=== PATIENT | female | born 1985 | race Caucasian/White ===

== ENCOUNTER 2021-06-19 18:33 | Emergency (ER) | payer MEDICARE, BC ==
[~2021-06-19] VITALS: Ht 160 cm; Wt 99.2 kg
[~2021-06-19 18:33] MED LIST: AMOX500C2 PO; CLD600T; CYCL10TA9 PO; HYDR-3583 PO; IRON; LA/L175C; LORA10TA2; METH4TAB PO; MUCINEX; NAPR-243 PO; NF-ESOM40C; OMEP20CA6; ONDA8TAB9 PO; PRM25T PO; RABE20TA PO; SULF1TAB38 PO; TLT2T; TRAM50TA2 PO; VIT1CAPS9
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
[2021-06-19] MEDS ORDERED: IOHEXOL 350 MG/ML 150 ML (OMNIPAQUE 350) VIAL IV ONE (19:00)
[2021-06-19] MEDS ORDERED: HOLD METFORMIN - RECEIVED CONTRAST 20 ML VIAL IV SCH (19:00)
[2021-06-19] MEDS ORDERED: NS 100 ML (IVPB) BAG IV ONE (19:00)
[2021-06-19 19:14] LABS: BASOPHILS # (AUTO) 0.1 10^3/uL (0.0-0.1); BASOPHILS % (AUTO) 1 % (0-10); EOSINOPHILS # (AUTO) 0.1 10^3/uL (0.0-0.3); EOSINOPHILS % (AUTO) 1 % (0-10); HEMATOCRIT 39 % (35-52); HEMOGLOBIN 13.4 g/dL (11.5-16.0); LYMPHOCYTES # (AUTO) 3.9 10^3/uL (1.0-4.0); LYMPHOCYTES % (AUTO) 28 % (12-44); MEAN CORPUSCULAR HEMOGLOBIN 26 pg (25-34); MEAN CORPUSCULAR HGB CONC 34 g/dL (32-36); MEAN CORPUSCULAR VOLUME 77 fL (80-99); MEAN PLATELET VOLUME 10.2 fL (9.0-12.2); MONOCYTES % (AUTO) 7 % (0-12); NEUTROPHILS # (AUTO) 8.8 10^3/uL (1.8-7.8); NEUTROPHILS % (AUTO) 63 % (42-75); PLATELET COUNT 231 10^3/uL (130-400); WHITE BLOOD COUNT 13.9 10^3/uL (4.3-11.0)
[2021-06-19 19:15] LABS: BILIRUBIN,URINE NEGATIVE (NEGATIVE); CLARITY,URINE CLOUDY; COLOR,URINE YELLOW; GLUCOSE, URINE (UA) 3+ (NEGATIVE); KETONES,URINE 1+ (NEGATIVE); LEUKOCYTE ESTERASE ,URINE TRACE (NEGATIVE); NITRITE,URINE NEGATIVE (NEGATIVE); PH,URINE 5.5 (5-9); PROTEIN,URINE NEGATIVE (NEGATIVE)
[2021-06-19 19:46] LABS: BACTERIA,URINE MODERATE /HPF
[2021-06-19 19:48] LABS: YEAST,URINE MODERATE /HPF
[2021-06-19 19:49] LABS: URINE OTHER YEAST ON SQ.EP.CELLS /HPF
[2021-06-19 20:06] LABS: ALKALINE PHOSPHATASE 79 U/L (40-136); BILIRUBIN,TOTAL 0.3 MG/DL (0.1-1.0); BUN/CREATININE RATIO 19; CALCIUM 10.2 MG/DL (8.5-10.1); CARBON DIOXIDE 19 MMOL/L (21-32); CHLORIDE 96 MMOL/L (98-107); CREATININE SERUM 1.08 MG/DL (0.60-1.30); GFR ESTIMATED 68; GLUCOSE 240 MG/DL (70-105); POTASSIUM 3.3 MMOL/L (3.6-5.0); SODIUM 135 MMOL/L (135-145)
[2021-06-19 20:07] LABS: ALANINE AMINOTRANSFERASE 17 U/L (0-55); ALBUMIN 4.7 GM/DL (3.2-4.5); TOTAL PROTEIN 7.9 GM/DL (6.4-8.2)
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
[2021-06-19] MEDS ORDERED: NITR100C PO (21:13)
[2021-06-19 21:19] VITALS: BP 109/94
== END 2021-06-19 21:19 | disposition home or self-care (01) ==
LOC: EDUNIT# 18:33 → ER FS 18:34
DX: S09.90XA Unspecified injury of head, initial encounter (principal); B37.49 Other urogenital candidiasis; G89.29 Other chronic pain; M54.9 Dorsalgia, unspecified; Z79.891 Long term (current) use of opiate analgesic; Y04.2XXA Assault by strike against or bumped into by another person, initial encounter
CPT/HCPCS: 36415; 70450; 70486; 74177; 80053; 81000; 84703; 85025; 87088

== ENCOUNTER 2021-06-22 22:48 | Emergency (ER) | payer MEDICARE, BC ==
[~2021-06-22] VITALS: Ht 160 cm; Wt 122.0 kg
[~2021-06-22 22:48] MED LIST changes: +NITR100C PO
[2021-06-23 00:47] LABS: BILIRUBIN,URINE NEGATIVE (NEGATIVE); CLARITY,URINE CLEAR; COLOR,URINE YELLOW; GLUCOSE, URINE (UA) 3+ (NEGATIVE); KETONES,URINE TRACE (NEGATIVE); LEUKOCYTE ESTERASE ,URINE NEGATIVE (NEGATIVE); NITRITE,URINE NEGATIVE (NEGATIVE); PROTEIN,URINE NEGATIVE (NEGATIVE)
[2021-06-23 01:14] LABS: AMPHETAMINE SCREEN, URINE NEGATIVE (NEGATIVE); BARBITURATE SCREEN URINE NEGATIVE (NEGATIVE); BENZODIAZEPINES SCREEN URINE NEGATIVE (NEGATIVE); CANNABINOID SCREEN, URINE NEGATIVE (NEGATIVE); COCAINE SCREEN URINE NEGATIVE (NEGATIVE); METHADONE STAT NEGATIVE (NEGATIVE); METHAMPHETAMINE SCREEN URINE S NEGATIVE (NEGATIVE); OPIATE SCREEN URINE NEGATIVE (NEGATIVE); OXYCODONE STAT NEGATIVE (NEGATIVE); PROPOXYPHENE STAT NEGATIVE (NEGATIVE); TRICYCLIC ANTIDEPRESSANTS SCRE POSITIVE (NEGATIVE)
[2021-06-23 01:15] LABS: BACTERIA,URINE NEGATIVE /HPF; SQUAMOUS EPITHELIAL CELL,UR 0-2 /HPF
[2021-06-23 02:56] LABS: BASOPHILS % (AUTO) 0 % (0-10); EOSINOPHILS # (AUTO) 0.2 10^3/uL (0.0-0.3); EOSINOPHILS % (AUTO) 3 % (0-10); HEMATOCRIT 35 % (35-52); HEMOGLOBIN 11.5 g/dL (11.5-16.0); LYMPHOCYTES # (AUTO) 2.4 10^3/uL (1.0-4.0); LYMPHOCYTES % (AUTO) 41 % (12-44); MEAN CORPUSCULAR HEMOGLOBIN 26 pg (25-34); MEAN CORPUSCULAR HGB CONC 33 g/dL (32-36); MEAN CORPUSCULAR VOLUME 80 fL (80-99); MEAN PLATELET VOLUME 10.1 fL (9.0-12.2); MONOCYTES # (AUTO) 0.7 10^3/uL (0.0-1.0); MONOCYTES % (AUTO) 12 % (0-12); NEUTROPHILS # (AUTO) 2.6 10^3/uL (1.8-7.8); NEUTROPHILS % (AUTO) 44 % (42-75); PLATELET COUNT 186 10^3/uL (130-400)
[2021-06-23 03:07] LABS: INR 1.1 (0.8-1.4); PROTHROMBIN TIME PATIENT 14.3 SEC (12.2-14.7)
[2021-06-23 03:08] LABS: ALBUMIN 3.7 GM/DL (3.2-4.5); CHLORIDE 109 MMOL/L (98-107); POTASSIUM 3.3 MMOL/L (3.6-5.0); SODIUM 139 MMOL/L (135-145)
[2021-06-23 03:10] LABS: CALCIUM 8.4 MG/DL (8.5-10.1)
[2021-06-23 03:11] LABS: GLUCOSE 292 MG/DL (70-105); TOTAL PROTEIN 6.4 GM/DL (6.4-8.2)
[2021-06-23 03:12] LABS: CARBON DIOXIDE 19 MMOL/L (21-32)
[2021-06-23 03:13] LABS: BILIRUBIN,TOTAL 0.2 MG/DL (0.1-1.0)
[2021-06-23 03:14] LABS: ALKALINE PHOSPHATASE 82 U/L (40-136)
[2021-06-23 03:15] LABS: CREATININE SERUM 0.84 MG/DL (0.60-1.30); GFR ESTIMATED 92
[2021-06-23 03:16] LABS: BUN/CREATININE RATIO 20
[2021-06-23 03:18] LABS: ALANINE AMINOTRANSFERASE 16 U/L (0-55)
[2021-06-23 03:19] LABS: LIPASE 46 U/L (8-78)
[2021-06-23] MEDS ORDERED: ONDANSETRON 4 MG/2 ML (SDV) Z0FRAN IVP ONE (04:45)
[2021-06-23] MEDS ORDERED: ONDANSETRON 4 MG (ZOFRAN) ORAL DISSOLVE TAB SL ONE (05:30)
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
[2021-06-23] MEDS ORDERED: SUCR1TAB36 PO (05:41)
[2021-06-23] MEDS ORDERED: OMEP20TA7 PO (05:41)
[2021-06-23] MEDS ORDERED: FLUC150T PO (05:41)
[2021-06-23] MEDS ORDERED: ONDA4TAB11 SL (05:44)
[2021-06-23 05:52] VITALS: BP 162/112
== END 2021-06-23 05:53 | disposition home or self-care (01) ==
LOC: EDUNIT# 22:48 → ER 22:51
DX: S06.0X9A Concussion with loss of consciousness of unspecified duration, initial encounter (principal); K92.0 Hematemesis; B37.3 Candidiasis of vulva and vagina; R73.9 Hyperglycemia, unspecified; G89.29 Other chronic pain; M54.9 Dorsalgia, unspecified; F17.210 Nicotine dependence, cigarettes, uncomplicated; Z79.891 Long term (current) use of opiate analgesic; Z32.02 Encounter for pregnancy test, result negative; Y04.8XXA Assault by other bodily force, initial encounter
CPT/HCPCS: 80053; 80306; 81000; 83690; 84703; 85025; 85610; 85730; 86141; 99283; G0480; 36415; 80320

== ENCOUNTER 2021-07-23 05:37 | Outpatient (CLI) | payer MEDICARE, BC ==
[~2021-07-23] VITALS: Ht 160 cm; Wt 101.0 kg
[~2021-07-23 05:37] MED LIST changes: +FLUC150T PO; +OMEP20TA7 PO; +ONDA4TAB11 SL; +SUCR1TAB36 PO
[2021-07-23] MEDS ORDERED: ASCO100024 PO (12:14)
[2021-07-23] MEDS ORDERED: LISI20TA26 PO (12:14)
[2021-07-23] MEDS ORDERED: TRM50T PO (12:14)
[2021-07-23] MEDS ORDERED: TOLT2TAB19 PO (12:14)
[2021-07-23] MEDS ORDERED: DAPA10TA PO (12:14)
[2021-07-23] MEDS ORDERED: AMIT25TA9 PO (12:14)
[2021-07-23] MEDS ORDERED: MV-M1TAB20 PO (12:14)
[2021-07-23] MEDS ORDERED: METF-397 PO (12:14)
[2021-07-23] MEDS ORDERED: IBUP-1779 PO (12:14)
[2021-07-23] MEDS ORDERED: DULO60CA59 PO (12:14)
[2021-07-23] MEDS ORDERED: GLUC1CAP37 PO (12:14)
[2021-07-23] MEDS ORDERED: OMEP20TA7 PO (12:14)
[2021-07-23] MEDS ORDERED: ASPI-999 PO (12:14)
[2021-07-23] MEDS ORDERED: TOPI25TA10 PO (12:14)
== END 2021-07-23 12:23 | disposition home or self-care (01) ==
LOC: PREOP 05:37 → EDSTATUS 09:15 → PREOP 12:23
PROVIDERS: ATTEND Surgery
DX: Z01.818 Encounter for other preprocedural examination (principal)

== ENCOUNTER 2021-07-30 08:05 | Day surgery (SDC) | payer MEDICARE, MEDICAID ==
[~2021-07-30] VITALS: Ht 160 cm; Wt 101.0 kg
[~2021-07-30 08:05] MED LIST changes: +AMIT25TA9 PO; +ASCO100024 PO; +ASPI-999 PO; +DAPA10TA PO; +DULO60CA59 PO; +GLUC1CAP37 PO; +IBUP-1779 PO; +LISI20TA26 PO; +METF-397 PO; +MV-M1TAB20 PO; +TOLT2TAB19 PO; +TOPI25TA10 PO; +TRM50T PO
[2021-07-30] MEDS ORDERED: LACTATED RINGERS 1,000 ML IV ONE (08:10)
[2021-07-30] MEDS ORDERED: LACTATED RINGERS 1,000 ML IV STA (08:27)
[2021-07-30 08:30] VITALS: BP 152/101
[2021-07-30] MEDS ORDERED: HURRICAINE EXT TUBE (BENZOCAINE) XX PRN (08:30)
--- NOTE | 2021-07-30 08:52 | Progress Note-Pre Operative ---
Pre-Operative Progress Note H&P Reviewed The H&P was reviewed, patient examined and no changes noted. Time Seen by Provider: 08:50 Date H&P Reviewed: Jul 30, 2021 Time H&P Reviewed: 08:50 Pre-Operative Diagnosis: Rectal Bleed, Chronic Gastritis MARIE ESTRELLA DO Jul 30, 2021 08:52
[2021-07-30] MEDS ORDERED: PROPOFOL INJECTION 0 ML IV ONE (09:23)
[2021-07-30] MEDS ORDERED: MIDAZOLAM 5 MG/5 ML (VERSED) VIAL ONE (09:23)
[2021-07-30] MEDS ORDERED: PROPOFOL INJECTION 50 ML IV ONE (09:40)
[2021-07-30 09:57] VITALS: BP 116/63
--- NOTE | 2021-07-30 10:00 | Progress Note-Post Operative ---
Post-Operative Progess Note Surgeon (s)/Hooker Inspector (s) Surgeon MARIE ESTRELLA DO Hooker Inspector: Bruna Hansen, MSIII Pre-Operative Diagnosis Rectal Bleed, Chronic Gastritis Post-Operative Diagnosis Gastritis Hiatal hernia Esophagitis polyp int hemorrhoids Procedure & Operative Findings Date of Procedure 07/30/21 Procedure Performed/Findings EGD with bx Colon with cold bx PROCEDURE NOTE: After informed consent was obtained, the patient was brought to the endoscopy suite, placed in bed in left lateral decubitus position. She was administered IV sedation by the MOVING CONSULTANT who then monitored vitals the entire time, heart rate, blood pressure and pulse ox and the scope was inserted down the mouth through the esophagus into the stomach. On the way down, noted some mild esophagitis, took a picture, pushed into the stomach, pushed past the antrum into the duodenum. Duodenum looked good. Pulled back and did a biopsy of antrum, then retroflexed the scope, saw 1-2cm hiatal hernia, took a picture of this and then pulled the scope into the GE junction, took another picture of the hiatal hernia and then did a biopsy of the GE junction. Pushed the scope back into the stomach, suctioned all the air out of the stomach. At this point pulled the scope up the esophagus and out the mouth. Switched camera, switched gloves, went down below, started the colonoscopy. Pushed all the way into about 110 cm to get all the way to cecum, took a picture of the appendiceal orifice, noted the ileocecal valve and then slowly withdrew the scope, insufflating the circumferential pinedo looking the cecum, up the ascending colon to the hepatic flexure, then down the transverse colon, splenic flexure, into the descending colon and down into the sigmoid. Saw a small flat polyp in the sigmoid and did a cold biopsy of it. Finally into the rectum, retroflexed in the rectal vault, saw some minimal internal hemorrhoids and took a picture of this. The patient tolerated the procedure and she recovered in the endoscopy suite. Anesthesia Type IV sedation by MOVING CONSULTANT Estimated Blood Loss Estimated blood loss (mL): scant Specimens/Packing Specimens Removed antral bx body of stomach bx GE jxn bx Sigmoid polyp bx MARIE ESTRELLA DO Jul 30, 2021 10:00
[2021-07-30 10:02] VITALS: BP 114/62
--- NOTE | 2021-07-30 10:02 | Endoscopy Discharge Instruct ---
Endo Procedure/Findings Findings 1.: Hiatal Hernia 2.: Gastritis 3.: Polyp 4.: Internal Hemorrhoids Discharge Instructions - Activity: You might feel a little sleepy until tomorrow. This is due to the medicine you received to relax you. Until tomorrow, you should: NOT drive a car, operate machinery or power tools. NOT drink any alcoholic beverages. NOT make any important decisions or sign importortant papers. Do not return to work until tomorrow, unless otherwise instructed. Resume previous activities tomorrow. Diet: Start by taking liquids. If you tolerate liquids, advance to solid food. 1.: Colonscopy in 5 years 2.: EGD in 3 years Notify Physician - If you experience excessive bleeding, unusual abdominal pain, fever, or chest pain, contact your doctor immediately. MARIE ESTRELLA DO Jul 30, 2021 10:02
[2021-07-30 10:05] VITALS: BP 127/71
[2021-07-30 10:40] VITALS: BP 109/59
--- NOTE | 2021-07-30 14:24 | Anesthesia-General Post-Op ---
MAC Patient Condition Mental Status/LOC: Same as Preop Cardiovascular: Satisfactory Nausea/Vomiting: Absent Respiratory: Satisfactory Pain: Controlled Complications: Absent Post Op Complications Complications None Follow Up Care/Instructions Patient Instructions None needed. Anesthesiology Discharge Order Discharge Order Patient is doing well, no complaints, stable vital signs, no apparent adverse anesthesia problems. No complications reported per nursing. MAUREEN VILLASENOR CRNA Jul 30, 2021 14:24
== END 2021-07-30 10:46 | disposition home or self-care (01) ==
LOC: ENDO 08:05
PROVIDERS: ATTEND Surgery
DX: K29.51 Unspecified chronic gastritis with bleeding (principal); K44.9 Diaphragmatic hernia without obstruction or gangrene; K21.01 Gastro-esophageal reflux disease with esophagitis, with bleeding; D12.5 Benign neoplasm of sigmoid colon; K64.8 Other hemorrhoids; E11.40 Type 2 diabetes mellitus with diabetic neuropathy, unspecified; F17.210 Nicotine dependence, cigarettes, uncomplicated; Z79.84 Long term (current) use of oral hypoglycemic drugs
CPT/HCPCS: 82947

== ENCOUNTER 2021-08-19 14:49 | Emergency (ER) | payer MEDICAID, MEDICARE ==
[~2021-08-19] VITALS: Ht 160 cm; Wt 90.0 kg
[2021-08-19 15:04] VITALS: BP 171/115
--- NOTE | 2021-08-19 15:25 | ED General ---
General Chief Complaint: General Problems/Pain Stated Complaint: FALL; RT FLANK PAIN Nursing Triage Note: Patient has presented to ER with cc of a fall on . She reports that she hit the right side of her head, she has lower right side back/flank pain, right side abd pain, her fingers and hands are sore, she reports that her skin feels warm to touch, and she reports that her skin is flushed today. She reports that she did get tramadol from [facility] on evening for the pain - she had called the offcie and she got a few tramadol. Today she is out of the tramadol. She has been taking ibuprofen daily for her pain but it is not getting better. Source of Information: Patient Exam Limitations: No Limitations History of Present Illness Date Seen by Provider: Aug 19, 2021 Time Seen by Provider: 15:21 Initial Comments Patient is a 36-year-old female who presents with bilateral flank pain and suprapubic pain, and flushing. Over fever chills, nausea vomiting or sweats. History of recurrent urinary tract infections. Timing/Duration: 12-24 Hours Severity: Mild Modifying Factors: improves with Other Associated Systoms: Other Allergies and Home Medications Allergies Uncoded Allergies: CONTROL (Allergy, Mild, HIGH BLOOD PRESSURE, 10/05/09) Patient Home Medication List Home Medication List Reviewed: Yes Amitriptyline HCl (Amitriptyline HCl) 25 Mg Tablet, 50 MG PO DAILY, (Reported) Entered as Reported by: DOMINIC HERNANDEZ on 07/23/211213 Ascorbic Acid (Vitamin C) 1,000 Mg Tablet, 1,000 MG PO DAILY, (Reported) Entered as Reported by: DOMINIC HERNANDEZ on 07/23/211213 Aspirin (Aspirin) 81 Mg Tab.chew, 81 MG PO DAILY, (Reported) Entered as Reported by: DOMINIC HERNANDEZ on 07/23/211213 Dapagliflozin Propanediol (Farxiga) 10 Mg Tablet, 10 MG PO DAILY, (Reported) Entered as Reported by: DOMINIC HERNANDEZ on 07/23/211213 Duloxetine HCl (Duloxetine HCl) 60 Mg Capsule.dr, 60 MG PO DAILY, (Reported) Entered as Reported by: DOMINIC HERNANDEZ on 07/23/211213 Glucosa Schmidt 2Kcl/Chondroitin Schmidt (Glucosamine & Chondroitin Cap) 1 Each Capsule, 2 EACH PO DAILY, (Reported) Entered as Reported by: DOMINIC HERNANDEZ on 07/23/21 1214 Ibuprofen (Ibuprofen) 400 Mg Tablet, 400 MG PO TID PRN for PAIN, (Reported) Entered as Reported by: DOMINIC HERNANDEZ on 07/23/21 121 Lisinopril (Lisinopril) 20 Mg Tablet, 20 MG PO DAILY, (Reported) Entered as Reported by: DOMINIC HERNANDEZ on 07/23/21 121 Metformin HCl (Metformin HCl) 500 Mg Tablet, 500 MG PO BID, (Reported) Entered as Reported by: DOMINIC HERNANDEZ on 07/23/21 121 Mv-Mn/Iron/FA/Herbal Cmplx#190 (Vitamin D3 Complete Caplet) 1 Each Tablet, 1 EACH PO DAILY, (Reported) Entered as Reported by: DOMINIC HERNANDEZ on 07/23/21 121 Omeprazole (Omeprazole) 20 Mg Tablet.dr, 20 MG PO BID, (Reported) Entered as Reported by: DOMINIC HERNANDEZ on 07/23/21 121 Sucralfate (Carafate) 1 Gm Tablet, 1 GM PO QID Prescribed by: BUSTER KEVIN on 06/23/21 0541 Tolterodine Tartrate (Tolterodine Tartrate) 2 Mg Tablet, 2 MG PO DAILY, (Reported) Entered as Reported by: DOMINIC HERNANDEZ on 07/23/21 121 Topiramate (Topiramate) 25 Mg Tablet, 25 MG PO DAILY, (Reported) Entered as Reported by: DOMINIC HERNANDEZ on 07/23/21 121 Tramadol HCl (Tramadol HCl) 50 Mg Tablet, 50 MG PO Q4H PRN for PAIN-MODERATE (5- 7), (Reported) Entered as Reported by: DOMINIC HERNANDEZ on 07/23/21 121 Tramadol Hcl (Tramadol Hcl) 50 Mg Tablet, 50 MG PO Q4H PRN for PAIN Prescribed by: JOSIE RITCHIE on 04/16/13 7055 Review of Systems Review of Systems Constitutional: see HPI EENTM: see HPI Respiratory: see HPI Cardiovascular: see HPI Gastrointestinal: see HPI Genitourinary: see HPI Musculoskeletal: see HPI Skin: see HPI Psychiatric/Neurological: See HPI Hematologic/Lymphatic: See HPI Immunological/Allergic: see HPI Past Dzehqbs-Nwlert-Tjsldn Hx Patient Social History Tobacco Use?: Yes Tobacco type used: Cigarettes Smoking Status: Current Everyday Smoker Use of E-Cig and/or Vaping dev: No Substance use?: No Alcohol Use?: No Immunizations Up To Date Tetanus Booster (TDap): Unknown First/Initial COVID19 Vaccinat: NO Second COVID19 Vaccination Papa: NO Third COVID19 Vaccination Date: NO Seasonal Allergies Seasonal Allergies: No Past Medical History Surgeries: Yes Bladder Surgery Respiratory: No Cardiac: Yes Hypertension Neurological: No Reproductive Disorders: No Female Reproductive Disorders: Denies Sexually Transmitted Disease: No HIV/AIDS: No Genitourinary: Yes (BLADDER SURGERY A CHILD, OVERACTIVE BLADDER) Gastrointestinal: Yes Gastroesophageal Reflux Musculoskeletal: Yes Fibromyalgia, Back Injury, Scoliosis, Chronic Back Pain Endocrine: Yes Diabetes, Non-Insulin dep HEENT: No Double Vision Cancer: No Psychosocial: Yes Anxiety, Depression Integumentary: No Blood Disorders: No Family Medical History Renal Disease Physical Exam Vital Signs Vital Signs - First Documented 08/19/21 15:04 Temp 36.1 Pulse 91 B/P (MAP) 171/115 (133) Pulse Ox 98 O2 Delivery Room Air Capillary Refill : Height, Weight, BMI Height: '" Weight: 220lbs. oz. 99.246195ai; 35.00 BMI Method:Stated General Appearance: No Apparent Distress, WD/WN Eyes: Bilateral Eye Normal Inspection, Bilateral Eye PERRL, Bilateral Eye EOMI HEENT: PERRL/EOMI, TMs Normal Gastrointestinal: Non Tender, Soft Back: No CVA Tenderness, No Vertebral Tenderness Neurologic/Psychiatric: Alert, Oriented x3, No Motor/Sensory Deficits Focused Exam Sepsis Stage: Ruled Out Progress/Results/Core Measures Suspected Sepsis SIRS Temperature: Pulse: 91 Respiratory Rate: Blood Pressure 171 /115 Mean: 133 Results/Orders Lab Results Laboratory Tests Test 08/19/21 15:20 Range/Units Urine Color YELLOW Urine Clarity SLIGHTLY CLOUDY Urine pH 6.0 5-9 Urine Specific [place] 1.020 1.016-1.022 Urine Protein NEGATIVE NEGATIVE Urine Glucose (UA) 3+ H NEGATIVE Urine Ketones 1+ H NEGATIVE Urine Nitrite NEGATIVE NEGATIVE Urine Bilirubin NEGATIVE NEGATIVE Urine Urobilinogen 0.2 < = 1.0 MG/DL Urine Leukocyte Esterase NEGATIVE NEGATIVE Urine RBC (Auto) TRACE-I H NEGATIVE Urine RBC 5-10 H /HPF Urine WBC 25-50 H /HPF Urine Squamous Epithelial Cells 25-50 H /HPF Urine Crystals NONE /LPF Urine Bacteria MODERATE H /HPF Urine Casts NONE /LPF Urine Mucus NEGATIVE /LPF Urine Yeast MODERATE H /HPF Urine Culture Indicated NO My Orders Orders - RAOUL CASAREZ DO Ua Culture If Indicated (08/19/21 15:16) Vital Signs/I&O 08/19/21 15:04 Temp 36.1 Pulse 91 B/P (MAP) 171/115 (133) Pulse Ox 98 O2 Delivery Room Air Capillary Refill : Blood Pressure Mean: 133 Departure Impression Primary Impression: Urinary tract infection Disposition: HOME, SELF-CARE Condition: Stable Departure-Patient Inst. Decision time for Depature: 15:53 Referrals: MINI STAPLES APRN (PCP) Primary Care Physician [facility] (Family) Primary Care Physician Patient Instructions: Urinary Tract Infections in Adults Add. Discharge Instructions: You were evaluated in the emergency department for urinary tract infection. Please increase fluids and take newly prescribed medications as directed and follow-up with your PCP for 5- 7 days. Return to the ED if new or worsening symptoms. All discharge instructions reviewed with patient and/or family. Voiced understanding. Scripts Sulfamethoxazole/Trimethoprim (Bactrim Ds Tablet) 1 Each Tablet 1 EACH PO BID, #10 TAB Prov: RAOUL CASAREZ DO 08/19/21 RAOUL CASAREZ DO Aug 19, 2021 15:25
[2021-08-19 15:33] LABS: BILIRUBIN,URINE NEGATIVE (NEGATIVE); COLOR,URINE YELLOW; GLUCOSE, URINE (UA) 3+ (NEGATIVE); KETONES,URINE 1+ (NEGATIVE); LEUKOCYTE ESTERASE ,URINE NEGATIVE (NEGATIVE); NITRITE,URINE NEGATIVE (NEGATIVE); PROTEIN,URINE NEGATIVE (NEGATIVE)
[2021-08-19 15:37] LABS: CLARITY,URINE SLIGHTLY CLOUDY
[2021-08-19 15:38] LABS: BACTERIA,URINE MODERATE /HPF; SQUAMOUS EPITHELIAL CELL,UR 25-50 /HPF; WBC,URINE 25-50 /HPF; YEAST,URINE MODERATE /HPF
[2021-08-19] MEDS ORDERED: SULF1TAB38 PO (15:54)
[2021-08-19] MEDS ORDERED: TRIM/SULFAMETH 160/800 (SEPTRA DS) TAB PO ONE (16:00)
[2021-08-20] MEDS ORDERED: SULF1TAB38 PO (08:49)
[2021-08-20] MEDS ORDERED: ACET-2267 PO (08:49)
[2021-08-20] MEDS ORDERED: PHEN-639 PO (08:49)
[2021-08-20] MEDS ORDERED: ONDA4TAB11 PO (08:49)
[2021-08-20] MEDS ORDERED: IBUP-1773 PO (08:49)
== END 2021-08-19 16:00 | disposition home or self-care (01) ==
LOC: EDUNIT# 14:49 → ER FS 14:51
DX: N39.0 Urinary tract infection, site not specified (principal); E11.9 Type 2 diabetes mellitus without complications; F17.210 Nicotine dependence, cigarettes, uncomplicated; Z79.84 Long term (current) use of oral hypoglycemic drugs
CPT/HCPCS: 81000; 99285

== ENCOUNTER 2021-08-20 07:28 | Emergency (ER) | payer MEDICARE, MEDICAID ==
[~2021-08-20] VITALS: Ht 160 cm; Wt 127.0 kg
--- NOTE | 2021-08-20 08:09 | ED General ---
General Chief Complaint: General Problems/Pain Stated Complaint: FALL - HIT HEAD Source of Information: Patient Exam Limitations: No Limitations History of Present Illness Date Seen by Provider: Aug 20, 2021 Time Seen by Provider: 07:31 Initial Comments 36yoF with PMH of fibromyalgia, DM2, HTN, anxiety, PTSD coming in due to numerous complaints. The patient had a fall on for which she presented to [facility]. There they gave her a couple days of tramadol. She continued to have pain and presented to the ER yesterday and was diagnosed with a UTI for which she was started on Bactrim. She says she continues to have pain in numerous areas all over her body. The main issue is she is having pain on the right side of her body and some subjective weakness which has been going on for many days. She also is endorsing some dysuria. Allergies and Home Medications Allergies Uncoded Allergies: CONTROL (Allergy, Mild, HIGH BLOOD PRESSURE, 10/05/09) Patient Home Medication List Home Medication List Reviewed: Yes Acetaminophen (Tylenol Extra Strength) 500 Mg Tablet, 1,000 MG PO Q6H Prescribed by: ANAI CANALES on 08/20/21 0849 Amitriptyline HCl (Amitriptyline HCl) 25 Mg Tablet, 50 MG PO DAILY, (Reported) Entered as Reported by: DOMINIC HERNANDEZ on 07/23/21 121 Ascorbic Acid (Vitamin C) 1,000 Mg Tablet, 1,000 MG PO DAILY, (Reported) Entered as Reported by: DOMINIC HERNANDEZ on 07/23/21 121 Aspirin (Aspirin) 81 Mg Tab.chew, 81 MG PO DAILY, (Reported) Entered as Reported by: DOMINIC HERNANDEZ on 07/23/21 1214 Dapagliflozin Propanediol (Farxiga) 10 Mg Tablet, 10 MG PO DAILY, (Reported) Entered as Reported by: DOMINIC HERNANDEZ on 07/23/21 121 Duloxetine HCl (Duloxetine HCl) 60 Mg Capsule.dr, 60 MG PO DAILY, (Reported) Entered as Reported by: DOMINIC HERNANDEZ on 07/23/21 121 Glucosa Schmidt 2Kcl/Chondroitin Schmidt (Glucosamine & Chondroitin Cap) 1 Each Capsule, 2 EACH PO DAILY, (Reported) Entered as Reported by: DOMINIC HERNANDEZ on 07/23/21 1214 Ibuprofen (Ibuprofen) 400 Mg Tablet, 400 MG PO TID PRN for PAIN, (Reported) Entered as Reported by: DOMINIC HERNANDEZ on 07/23/21 1214 Lisinopril (Lisinopril) 20 Mg Tablet, 20 MG PO DAILY, (Reported) Entered as Reported by: DOMINIC HERNANDEZ on 07/23/21 1214 Metformin HCl (Metformin HCl) 500 Mg Tablet, 500 MG PO BID, (Reported) Entered as Reported by: DOMINIC HERNANDEZ on 07/23/21 1214 Mv-Mn/Iron/FA/Herbal Cmplx#190 (Vitamin D3 Complete Caplet) 1 Each Tablet, 1 EACH PO DAILY, (Reported) Entered as Reported by: DOMINIC HERNANDEZ on 07/23/21 1214 Omeprazole (Omeprazole) 20 Mg Tablet.dr, 20 MG PO BID, (Reported) Entered as Reported by: DOMINIC HERNANDEZ on 07/23/21 1214 Ondansetron (Ondansetron Odt) 4 Mg Tab.rapdis, 4 MG PO Q6H PRN for NAUSEA/VOMITING-1ST LINE Prescribed by: ANAI CANALES on 08/20/21 0849 Phenazopyridine HCl (Pyridium) 100 Mg Tablet, 100 MG PO BID Prescribed by: ANAI CANALES on 08/20/21 0849 Sucralfate (Carafate) 1 Gm Tablet, 1 GM PO QID Prescribed by: BUSTER KEVIN on 06/23/21 0541 Sulfamethoxazole/Trimethoprim (Bactrim Ds Tablet) 1 Each Tablet, 1 EACH PO BID Prescribed by: RAOUL CASAREZ on 08/19/21 1554 Sulfamethoxazole/Trimethoprim (Bactrim Ds Tablet) 1 Each Tablet, 1 EACH PO BID Prescribed by: ANAI CANALES on 08/20/21 0849 Tolterodine Tartrate (Tolterodine Tartrate) 2 Mg Tablet, 2 MG PO DAILY, (Reporte d) Entered as Reported by: DOIMNIC HERNANDEZ on 07/23/21 1214 Topiramate (Topiramate) 25 Mg Tablet, 25 MG PO DAILY, (Reported) Entered as Reported by: DOMINIC HERNANDEZ on 07/23/21 1214 Tramadol HCl (Tramadol HCl) 50 Mg Tablet, 50 MG PO Q4H PRN for PAIN-MODERATE (5- 7), (Reported) Entered as Reported by: DOMINIC HERNANDEZ on 07/23/21 1214 Tramadol Hcl (Tramadol Hcl) 50 Mg Tablet, 50 MG PO Q4H PRN for PAIN Prescribed by: JOSIE RITCHIE on 04/16/13 7356 Review of Systems Review of Systems Constitutional: No chills EENTM: No blurred vision Respiratory: no symptoms reported Cardiovascular: no symptoms reported Gastrointestinal: no symptoms reported Genitourinary: no symptoms reported Musculoskeletal: joint pain Skin: no symptoms reported Psychiatric/Neurological: Anxiety Hematologic/Lymphatic: No Symptoms Reported Immunological/Allergic: no symptoms reported All Other Systems Reviewed Negative Unless Noted: Yes Past Aqyfbml-Kzbqrq-Kyssjh Hx Immunizations Up To Date Tetanus Booster (TDap): Unknown First/Initial COVID19 Vaccinat: NO Second COVID19 Vaccination Papa: NO Third COVID19 Vaccination Date: NO Seasonal Allergies Seasonal Allergies: No Past Medical History Surgeries: Yes Bladder Surgery Respiratory: No Cardiac: Yes Hypertension Neurological: No Reproductive Disorders: No Female Reproductive Disorders: Denies Sexually Transmitted Disease: No HIV/AIDS: No Genitourinary: Yes (BLADDER SURGERY A CHILD, OVERACTIVE BLADDER) Gastrointestinal: Yes Gastroesophageal Reflux Musculoskeletal: Yes Fibromyalgia, Back Injury, Scoliosis, Chronic Back Pain Endocrine: Yes Diabetes, Non-Insulin dep HEENT: No Double Vision Cancer: No Psychosocial: Yes Anxiety, Depression Integumentary: No Blood Disorders: No Family Medical History Renal Disease Physical Exam Vital Signs Vital Signs - First Documented 08/20/21 07:31 Temp 36.0 Pulse 84 Resp 18 B/P (MAP) 178/115 (136) O2 Delivery Room Air Capillary Refill : Height, Weight, BMI Height: '" Weight: 220lbs. oz. 99.286729mn; 35.00 BMI Method:Stated General Appearance: No Apparent Distress, WD/WN Eyes: Bilateral Eye Normal Inspection HEENT: PERRL/EOMI, Normal ENT Inspection, Pharynx Normal Neck: Full Range of Motion, Normal Inspection, Non Tender, Supple Respiratory: Chest Non Tender, Lungs Clear, Normal Breath Sounds, No Accessory Muscle Use, No Respiratory Distress Cardiovascular: Regular Rate, Rhythm, No Edema, Normal Peripheral Pulses Gastrointestinal: Normal Bowel Sounds, Non Tender, Soft; No Distended, No Guarding Back: Normal Inspection, No CVA Tenderness, No Vertebral Tenderness Extremity: Normal Capillary Refill, Normal Inspection, Normal Range of Motion, Non Tender, No Calf Tenderness Neurologic/Psychiatric: Alert, Oriented x3, No Motor/Sensory Deficits, Normal Mood/Affect, opener tender II-XII Norm as Tested; No Abnormal Gait; Other (normal finger to nose) Skin: Normal Color, Warm/Dry Lymphatic: No Adenopathy Progress/Results/Core Measures Suspected Sepsis SIRS Temperature: Pulse: Respiratory Rate: Blood Pressure / Mean: Results/Orders Lab Results Laboratory Tests Test 08/20/21 08:08 Range/Units Urine Color YELLOW Urine Clarity CLEAR Urine pH 6.5 5-9 Urine Specific [place] 1.010 L 1.016-1.022 Urine Protein NEGATIVE NEGATIVE Urine Glucose (UA) 3+ H NEGATIVE Urine Ketones 1+ H NEGATIVE Urine Nitrite NEGATIVE NEGATIVE Urine Bilirubin NEGATIVE NEGATIVE Urine Urobilinogen 0.2 < = 1.0 MG/DL Urine Leukocyte Esterase NEGATIVE NEGATIVE Urine RBC (Auto) NEGATIVE NEGATIVE Urine RBC NONE /HPF Urine WBC NONE /HPF Urine Crystals PRESENT H /LPF Urine Amorphous Sediment FEW MARY ALICE URATES H /LPF Urine Bacteria NEGATIVE /HPF Urine Casts NONE /LPF Urine Mucus NEGATIVE /LPF Urine Culture Indicated NO My Orders Orders - ANAI CANALES MD Ct Head Wo (08/20/21 08:09) Ua Culture If Indicated (08/20/21 08:09) Vital Signs/I&O 08/20/21 07:31 Temp 36.0 Pulse 84 Resp 18 B/P (MAP) 178/115 (136) O2 Delivery Room Air Capillary Refill : Progress Note : Progress Note 36-year-old female with above history coming in due to full body pain most notably on the right side and some dysuria. ABCs were intact and vitals were stable on presentation. Physical exam with tenderness to light touch on palpation almost anywhere on her body. I did a [id number] ultrasound because she was concerned she was not emptying her bladder. She had no residual urine after urinating. I was palpating her abdomen quite hard with ultrasound and she was not having pain with that. She says she is having some subjective weakness in her right extremity since the fall and hitting her head. There is no objective weakness on exam and she is found using all extremities including her arms without difficulty. When you ask her to then lift her arm when she knows she is being examined she will then let her arm go to the bed. Out of an abundance of caution we will do a CT of her head since she did hit her head. Also get a urinalysis repeated due to the dysuria. She was diagnosed with a UTI yesterday, but the patient is adamant that it was a different urine that was sampled. CT head on my interpretation with no bleeding or mass. Urinalysis today is improved from yesterday. Given her significant degree of dysuria I will start her on some Pyridium. We will also start her on an anti-inflammatory to help with her pain. She should follow-up with her regular doctor. She says she has an appointment already in 9 days. She was then discharged home in stable condition with strict return precautions Diagnostic Imaging Diagonstic Imaging: CT Plain Films/CT/US/NM/MRI: head Comments NAME: [facility] REC#: [id number] PT STATUS: REG ER : 1985 PHYSICIAN: ANAI CANALES MD ADMIT DATE: 08/20/21/ER Signed Date of Exam:08/20/21 CT HEAD WO PROCEDURE: CT head without contrast. TECHNIQUE: Multiple contiguous axial images were obtained through the brain without the use of intravenous contrast. Auto Exposure Controls were utilized during the CT exam to meet ALARA standards for radiation dose reduction. DATE: August 20, 2021. COMPARISON: CT head and maxillofacial area June 19, 2021. MRI brain August 31, 2010. INDICATION: 36-year-old female, right-sided weakness. Fall last . FINDINGS: There is no identified skull fracture. The ventricles and cerebral spinal fluid spaces are of normal size and configuration for the patient's age. There is no mass effect or midline shift. There is no acute intracranial hemorrhage. There is no abnormal extra-axial fluid collection. The visualized portions of the paranasal sinuses, mastoid air cells and middle ears are well aerated. IMPRESSION: 1. No identified acute intracranial abnormality. Dictated by: Dictated on workstation # [id number] Dict: 08/20/21 [id number] Trans: 08/20/21 0845 [facility] [id number] Interpreted by: YANDEL BAÑUELOS MD Electronically signed by: YANDEL BAÑUELOS MD 08/20/21 0845 Departure Impression Primary Impression: Whole body pain Additional Impression: Fall Qualified Codes: W19.XXXA - Unspecified fall, initial encounter Disposition: HOME, SELF-CARE Condition: Stable Departure-Patient Inst. Decision time for Depature: 09:00 Referrals: MINI STAPLES APRN (PCP) Primary Care Physician [facility] (Family) Primary Care Physician Patient Instructions: Fibromyalgia (DC), Urinary Tract Infection, Adult (DC) Add. Discharge Instructions: We sent prescription ibuprofen and Tylenol to your pharmacy. If you need more tramadol you need to follow-up with your regular doctor, as were not able to do continued refills from the emergency department. I also sent nausea medicine to your pharmacy. I resent the antibiotic to the [facility] as well in [place] so it can be cheaper for you. I also sent a medication called Pyridium which will typically help with urinary discomfort. It will change your urine orange which is normal. If things are not improving call [employer] back to have quicker follow-up. Scripts Ondansetron (Ondansetron Odt) 4 Mg Tab.rapdis 4 MG PO Q6H PRN for NAUSEA/VOMITING-1ST LINE for 5 Days, #20 TAB Prov: ANAI CANALES MD 08/20/21 Sulfamethoxazole/Trimethoprim (Bactrim Ds Tablet) 1 Each Tablet 1 EACH PO BID for 5 Days, #10 TAB Prov: ANAI CANALES MD 08/20/21 Phenazopyridine HCl (Pyridium) 100 Mg Tablet 100 MG PO BID for 3 Days, #6 TAB Prov: ANAI CANALES MD 08/20/21 Acetaminophen (Tylenol Extra Strength) 500 Mg Tablet 1000 MG PO Q6H for 7 Days, #56 TAB Prov: ANAI CANALES MD 08/20/21 Ibuprofen (Ibuprofen) 600 Mg Tablet 600 MG PO Q6H PRN for PAIN-MILD for 7 Days, #28 TAB Prov: ANAI CANALES MD 08/20/21 Work/School Note: Work Release Form Date Seen in the Emergency Department: Aug 20, 2021 Return to Work: Aug 21, 2021 Restrictions: No Restrictions ANAI CANALES MD Aug 20, 2021 08:08
[2021-08-20 08:16] LABS: BILIRUBIN,URINE NEGATIVE (NEGATIVE); CLARITY,URINE CLEAR; COLOR,URINE YELLOW; GLUCOSE, URINE (UA) 3+ (NEGATIVE); KETONES,URINE 1+ (NEGATIVE); LEUKOCYTE ESTERASE ,URINE NEGATIVE (NEGATIVE); NITRITE,URINE NEGATIVE (NEGATIVE); PH,URINE 6.5 (5-9); PROTEIN,URINE NEGATIVE (NEGATIVE)
[2021-08-20 08:39] LABS: BACTERIA,URINE NEGATIVE /HPF
[2021-08-20 08:40] LABS: AMORPHOUS SEDIMENT,UR FEW AMOR URATES /LPF
--- NOTE | 2021-08-20 08:46 | Diagnostic Imaging Report ---
PROCEDURE: CT head without contrast. TECHNIQUE: Multiple contiguous axial images were obtained through the brain without the use of intravenous contrast. Auto Exposure Controls were utilized during the CT exam to meet ALARA standards for radiation dose reduction. DATE: August 20, 2021. COMPARISON: CT head and maxillofacial area June 19, 2021. MRI brain August 31, 2010. INDICATION: 36-year-old female, right-sided weakness. Fall last . FINDINGS: There is no identified skull fracture. The ventricles and cerebral spinal fluid spaces are of normal size and configuration for the patient's age. There is no mass effect or midline shift. There is no acute intracranial hemorrhage. There is no abnormal extra-axial fluid collection. The visualized portions of the paranasal sinuses, mastoid air cells and middle ears are well aerated. IMPRESSION: 1. No identified acute intracranial abnormality. Dictated by: Dictated on workstation # [id number]
[2021-08-20] MEDS ORDERED: ONDA4TAB11 PO (08:49)
[2021-08-20] MEDS ORDERED: PHEN-639 PO (08:49)
[2021-08-20] MEDS ORDERED: IBUP-1773 PO (08:49)
[2021-08-20] MEDS ORDERED: ACET-2267 PO (08:49)
[2021-08-20] MEDS ORDERED: SULF1TAB38 PO (08:49)
[2021-08-20 08:59] VITALS: BP 155/79
== END 2021-08-20 09:00 | disposition home or self-care (01) ==
LOC: EDUNIT# 07:28 → ER 07:30
DX: R52 Pain, unspecified (principal); N39.0 Urinary tract infection, site not specified; E11.9 Type 2 diabetes mellitus without complications; Z79.84 Long term (current) use of oral hypoglycemic drugs
CPT/HCPCS: 70450; 81000

== ENCOUNTER → 2021-09-13 | Outpatient (CLI) | payer MEDICARE, MEDICAID ==
[~2021-09-13] MED LIST changes: +ACET-2267 PO; +IBUP-1773 PO; +OMEP20TA56 PO; -OMEP20TA7 PO; +ONDA4TAB11 PO; +PHEN-639 PO
--- NOTE | 2021-09-13 10:35 | Diagnostic Imaging Report ---
INDICATION: PAIN IN RIGHT SHOULDER frequent falls. COMPARISON: None. FINDINGS: 2 views of the right shoulder were obtained. There is no fracture, dislocation, or other acute bony abnormality identified. The soft tissues appear unremarkable. No radiopaque foreign body is identified. The visualized portions of the right lung are clear. IMPRESSION: No acute fractures or dislocations of the right shoulder. Dictated by: Dictated on workstation # [id number]
== END ==
LOC: RAD FS 10:09
PROVIDERS: ATTEND Nurse Practitioner Family
DX: M25.511 Pain in right shoulder (principal)
CPT/HCPCS: 73030

== ENCOUNTER 2021-09-27 05:38 | Outpatient (CLI) | payer MEDICARE, MEDICAID ==
[~2021-09-27] VITALS: Ht 160 cm; Wt 109.0 kg
== END 2021-10-02 08:41 | disposition home or self-care (01) ==
LOC: PREOP 05:38
PROVIDERS: ATTEND Obstetrics & Gynecology
DX: Z01.818 Encounter for other preprocedural examination (principal)

== ENCOUNTER → 2021-10-04 | Day surgery (SDC) | payer MEDICARE, MEDICAID ==
[~2021-10-04] VITALS: Ht 160 cm; Wt 109.0 kg
[2021-10-04] VITALS (10 sets, daily range): BP systolic 103–180; BP diastolic 65–115
[~2021-10-04] MED LIST changes: +BUPIVACAINE 0.5% 30 ML (SENSORCAINE) VIAL ONE; +D5 LR IV SOLUTION 1,000 ML IV SCH; +KETOROLAC 30 MG/ML VIAL IVP ONE; +KETOROLAC 30 MG/ML VIAL ONE; +LIDOCAINE PF 2% 5 ML (XYLOCAINE) VIAL ONE; +MIDAZOLAM 2 MG/2 ML (VERSED) VIAL ONE; +ONDANSETRON 4 MG/2 ML (SDV) Z0FRAN IVP PRN; +ONDANSETRON 4 MG/2 ML (SDV) Z0FRAN ONE; +SEVOFLURANE (ULTANE) 15 ML INHAL SOLN ONE; +fentaNYL INJ 100 MCG/2 ML AMP IVP ONE; +fentaNYL INJ 100 MCG/2 ML AMP ONE; +morphine INJ 10 MG/ML 1ML (SYR OR VIAL) IVP ONE; +proPOfol 200 MG/20 ML (DIPRIVAN) VIAL IV ONE
[2021-10-04 06:39] LABS: BILIRUBIN,URINE NEGATIVE (NEGATIVE); CLARITY,URINE CLEAR; COLOR,URINE YELLOW; GLUCOSE, URINE (UA) 3+ (NEGATIVE); KETONES,URINE NEGATIVE (NEGATIVE); LEUKOCYTE ESTERASE ,URINE NEGATIVE (NEGATIVE); NITRITE,URINE NEGATIVE (NEGATIVE); PH,URINE 5.5 (5-9); PROTEIN,URINE 1+ (NEGATIVE)
[2021-10-04 07:12] LABS: BACTERIA,URINE TRACE /HPF; RBC,URINE 0-2 /HPF; YEAST,URINE FEW /HPF
[2021-10-04] MEDS: LACTATED RINGERS 1,000 ML IV PRN ×2 (07:12→09:30)
[2021-10-04 07:18] LABS: BASOPHILS % (AUTO) 1 % (0-10); EOSINOPHILS # (AUTO) 0.2 10^3/uL (0.0-0.3); EOSINOPHILS % (AUTO) 3 % (0-10); HEMATOCRIT 40 % (35-52); HEMOGLOBIN 13.6 g/dL (11.5-16.0); LYMPHOCYTES # (AUTO) 2.4 10^3/uL (1.0-4.0); LYMPHOCYTES % (AUTO) 32 % (12-44); MEAN CORPUSCULAR HEMOGLOBIN 27 pg (25-34); MEAN CORPUSCULAR HGB CONC 34 g/dL (32-36); MEAN CORPUSCULAR VOLUME 80 fL (80-99); MEAN PLATELET VOLUME 9.6 fL (9.0-12.2); MONOCYTES # (AUTO) 0.7 10^3/uL (0.0-1.0); MONOCYTES % (AUTO) 9 % (0-12); NEUTROPHILS # (AUTO) 4.3 10^3/uL (1.8-7.8); NEUTROPHILS % (AUTO) 56 % (42-75); PLATELET COUNT 179 10^3/uL (130-400); WHITE BLOOD COUNT 7.7 10^3/uL (4.3-11.0)
[2021-10-04 07:32] LABS: ALBUMIN 4.2 GM/DL (3.2-4.5)
[2021-10-04 07:33] LABS: POTASSIUM 3.6 MMOL/L (3.6-5.0)
[2021-10-04 07:34] LABS: CALCIUM 9.1 MG/DL (8.5-10.1)
[2021-10-04 07:35] LABS: TOTAL PROTEIN 7.3 GM/DL (6.4-8.2)
[2021-10-04 07:37] LABS: BILIRUBIN,TOTAL 0.5 MG/DL (0.1-1.0)
[2021-10-04 07:39] LABS: CREATININE SERUM 0.75 MG/DL (0.60-1.30)
--- NOTE | 2021-10-04 07:50 | Progress Note-Pre Operative ---
Pre-Operative Progress Note H&P Reviewed The H&P was reviewed, patient examined and no changes noted. plan pap, exam under anesthesia, transvaginal sonogram, clinical breast exam in addition to hysteroscopy D&C Date Seen by Provider: Oct 04, 2021 Time Seen by Provider: 07:20 Date H&P Reviewed: Oct 04, 2021 Time H&P Reviewed: 07:20 Pre-Operative Diagnosis: AUB, routine gynecology exam KELLY PRINCE MD Oct 04, 2021 07:50
--- NOTE | 2021-10-04 10:36 | OB/GYN Operative Report ---
Operative Report Date of Procedure:Oct 04, 2021 Preoperative Diagnosis: [Abnormal uterine bleeding same hysteroscopy with D&C,] Postoperative Diagnosis: [Same] Name of the Procedure: [Hysteroscopy D&C transvaginal sono, clinical breast exam, Pap] Surgeon: Kelly Prince Group Tester(s): [none] Anesthesia: [General] Indications for Procedure: [As above, refused pelvic exam or clinical exam in the office] Findings of the Procedure: [Thickened endometrial cavity with firm tissue anterior fundal. Right tubal ostia easily visualized left difficult. Cervix without lesions or masses. Clinical breast exam without masses lumps or nipple discharge] Name and Description of the Procedure: After the risk benefits alternative the procedure described the patient she was taken to the operating room where general anesthesia was obtained at difficulty. She is placed in dorsolithotomy position and prepped and draped in usual steril e fashion. Transvaginal pelvic sono was obtained showing endometrial lining of 2.6 cm no myometrial masses no abnormal adnexal masses. Clinical breast exam was performed while coat room attendant performs sono and had the above findings. Arturo retractor was placed in the patient's vagina due to a tight hymen and anterior lip of the cervix grasped with a single-tooth tenaculum. Paracervical block was placed and the cervix was dilated to accommodate the true clear hysteroscope which was advanced under direct visualization without difficulty. The cavity was surveyed with the above findings. The true clear incisor was advanced under direct visualization and biopsy taken throughout the entire cavity. All instruments removed from the patient's vagina Pap was obtained. Patient tolerated procedure well sponge lap needle instrument counts were correct and she was taken recovery in awake and stable condition. Complications: None Disposition: [Stable KELLY PRINCE MD Oct 04, 2021 10:36
--- NOTE | 2021-10-04 10:57 | Diagnostic Imaging Report ---
PROCEDURE: US NONOB transvaginal. TECHNIQUE: Multiple real-time grayscale images were obtained of the pelvis in various projections endovaginally. INDICATION: Abnormal uterine bleeding. FINDINGS: Uterus measures 7.3 x 5.8 x 6.4 cm. It is retroverted. The endometrium is thickened measuring 2.6 cm. It has heterogeneous echotexture. There is a 2 cm cyst on the right ovary. Left ovary is unremarkable with normal blood flow. There is no free fluid. IMPRESSION: Thickened and irregular endometrium. Endometrial hyperplasia cannot be excluded. Dictated by: Dictated on workstation # [id number]
--- NOTE | 2021-10-04 12:24 | Anesthesia-General Post-Op ---
General Patient Condition Mental Status/LOC: Same as Preop Cardiovascular: Satisfactory Nausea/Vomiting: Absent Respiratory: Satisfactory Pain: Controlled Complications: Absent Post Op Complications Complications None Follow Up Care/Instructions Patient Instructions None needed. Anesthesia/Patient Condition Patient Condition Patient is doing well, no complaints, stable vital signs, no apparent adverse anesthesia problems. No complications reported per nursing. MELVIN JAVED CRNA Oct 04, 2021 12:24
== END ==
LOC: SDC 06:18
PROVIDERS: ATTEND Obstetrics & Gynecology
DX: C54.1 Malignant neoplasm of endometrium (principal); E66.9 Obesity, unspecified; Z68.43 Body mass index [BMI] 50.0-59.9, adult
CPT/HCPCS: 36415; 76830; 80053; 81000; 82947; 84703; 85025; 86850; 86900; 86901; 87081; 87088

== ENCOUNTER 2022-01-11 17:38 | Emergency (ER) | payer MEDICARE, MEDICAID ==
[~2022-01-11] VITALS: Ht 160 cm; Wt 117.9 kg
[~2022-01-11 17:38] MED LIST changes: -BUPIVACAINE 0.5% 30 ML (SENSORCAINE) VIAL ONE; -D5 LR IV SOLUTION 1,000 ML IV SCH; -KETOROLAC 30 MG/ML VIAL IVP ONE; -KETOROLAC 30 MG/ML VIAL ONE; -LIDOCAINE PF 2% 5 ML (XYLOCAINE) VIAL ONE; -MIDAZOLAM 2 MG/2 ML (VERSED) VIAL ONE; -ONDANSETRON 4 MG/2 ML (SDV) Z0FRAN IVP PRN; -ONDANSETRON 4 MG/2 ML (SDV) Z0FRAN ONE; -SEVOFLURANE (ULTANE) 15 ML INHAL SOLN ONE; -fentaNYL INJ 100 MCG/2 ML AMP IVP ONE; -fentaNYL INJ 100 MCG/2 ML AMP ONE; -morphine INJ 10 MG/ML 1ML (SYR OR VIAL) IVP ONE; -proPOfol 200 MG/20 ML (DIPRIVAN) VIAL IV ONE
[2022-01-11 17:43] VITALS: BP 170/124
--- NOTE | 2022-01-11 17:58 | ED Abdominal Pain ---
General Chief Complaint: Chest Wall Stated Complaint: RIB PAIN Source of Information: Patient Exam Limitations: No Limitations History of Present Illness Date Seen by Provider: Jan 11, 2022 Time Seen by Provider: 17:45 Initial Comments 36-year-old female presents emerged from today for right upper quadrant abdominal pain. She states symptoms started about a month ago and were initially intermittent. Over the last couple of days it has been relatively constant with baseline mild pain with waves of severe pain. She has never had similar pains prior to these events. No fevers or chills. She has had nausea without any vomiting. Normal bowel movements. Pain is worse when she bends over. Does not seem to be specifically associated with eating Allergies and Home Medications Allergies Uncoded Allergies: CONTROL (Allergy, Mild, HIGH BLOOD PRESSURE, 10/05/09) Patient Home Medication List Home Medication List Reviewed: Yes Amitriptyline HCl (Amitriptyline HCl) 25 Mg Tablet, 50 MG PO DAILY, (Reported) Entered as Reported by: DOMINIC HERNANDEZ on 07/23/211213 Ascorbic Acid (Vitamin C) 1,000 Mg Tablet, 1,000 MG PO DAILY, (Reported) Entered as Reported by: DOMINIC HERNANDEZ on 07/23/211213 Aspirin (Aspirin) 81 Mg Tab.chew, 81 MG PO DAILY, (Reported) Entered as Reported by: DOMINIC HERNANDEZ on 07/23/211213 Dapagliflozin Propanediol (Farxiga) 10 Mg Tablet, 10 MG PO DAILY, (Reported) Entered as Reported by: DOMINIC HERNANDEZ on 07/23/211213 Duloxetine HCl (Duloxetine HCl) 60 Mg Capsule.dr, 60 MG PO DAILY, (Reported) Entered as Reported by: DOMINIC HERNANDEZ on 07/23/211213 Glucosa Schmidt 2Kcl/Chondroitin Schmidt (Glucosamine & Chondroitin Cap) 1 Each Capsule, 2 EACH PO DAILY, (Reported) Entered as Reported by: DOMINIC HERNANDEZ on 07/23/211213 Ibuprofen (Ibuprofen) 400 Mg Tablet, 400 MG PO TID PRN for PAIN, (Reported) Entered as Reported by: DOMINIC HERNANDEZ on 07/23/211213 Lisinopril (Lisinopril) 20 Mg Tablet, 20 MG PO DAILY, (Reported) Entered as Reported by: DOMINIC HERNANDEZ on 3/21/22 1214 Metformin HCl (Metformin HCl) 500 Mg Tablet, 500 MG PO BID, (Reported) Entered as Reported by: DOMINIC HERNANDEZ on 07/23/21 1214 Mv-Mn/Iron/FA/Herbal Cmplx#190 (Vitamin D3 Complete Caplet) 1 Each Tablet, 1 EACH PO DAILY, (Reported) Entered as Reported by: DOMINIC HERNANDEZ on 07/23/21 1214 Omeprazole (Omeprazole) 20 Mg Tablet.dr, 20 MG PO BID, (Reported) Entered as Reported by: DOMINIC HERNANDEZ on 07/23/21 1214 Ondansetron (Ondansetron Odt) 4 Mg Tab.rapdis, 4 MG PO Q6H PRN for NAUSEA/VOMITING-1ST LINE Prescribed by: ANAI CANALES on 08/20/21 0849 Sucralfate (Carafate) 1 Gm Tablet, 1 GM PO QID Prescribed by: BUSTER KEVIN on 06/23/21 0541 Tolterodine Tartrate (Tolterodine Tartrate) 2 Mg Tablet, 2 MG PO DAILY, (Reported) Entered as Reported by: DOMINIC HERNANDEZ on 07/23/21 1214 Topiramate (Topiramate) 25 Mg Tablet, 25 MG PO DAILY, (Reported) Entered as Reported by: DOMINIC HERNANDEZ on 07/23/21 1214 Review of Systems Review of Systems Constitutional: no symptoms reported EENTM: No Symptoms Reported Respiratory: No Symptoms Reported Cardiovascular: No Symptoms Reported Gastrointestinal: Abdominal Pain, Nausea Genitourinary: No Symptoms Reported Musculoskeletal: no symptoms reported Skin: no symptoms reported Psychiatric/Neurological: No Symptoms Reported Endocrine: No Symptoms Reported Hematologic/Lymphatic: No Symptoms Reported Past Plnikzp-Eqetsa-Pmzmls Hx Immunizations Up To Date Tetanus Booster (TDap): Unknown First/Initial COVID19 Vaccinat: NO Second COVID19 Vaccination Papa: NO Third COVID19 Vaccination Date: NO Seasonal Allergies Seasonal Allergies: No Past Medical History Surgeries: Yes (EGD/COLONOSCOPY JULY 2021) Bladder Surgery Respiratory: No Currently Using CPAP: No Currently Using BIPAP: No Cardiac: Yes Hypertension Neurological: No Reproductive Disorders: No Female Reproductive Disorders: Menstrual Problems Sexually Transmitted Disease: No HIV/AIDS: No Genitourinary: Yes (BLADDER SURGERY A CHILD, OVERACTIVE BLADDER) Gastrointestinal: Yes Gastroesophageal Reflux Musculoskeletal: Yes Fibromyalgia, Back Injury, Scoliosis, Chronic Back Pain Endocrine: Yes Diabetes, Non-Insulin dep HEENT: No Double Vision Cancer: No Psychosocial: Yes Anxiety, Depression Integumentary: No Blood Disorders: No Family Medical History Reviewed Nursing Family Hx No Pertinent Family Hx, Renal Disease Physical Exam Vital Signs Vital Signs - First Documented 01/11/22 17:43 Temp 36.3 Pulse 96 Resp 20 B/P (MAP) 170/124 (139) Pulse Ox 96 O2 Delivery Room Air Capillary Refill : Height/Weight/BMI Height: '" Weight: 220lbs. oz. [id number]; 42.57 BMI Method:Stated General Appearance: WD/WN, no apparent distress HEENT: normal ENT inspection, TMs normal, pharynx normal Neck: non-tender, full range of motion, supple, normal inspection Respiratory: chest non-tender, lungs clear, normal breath sounds, no respiratory distress, no accessory muscle use Cardiovascular: regular rate, rhythm, no edema, no gallop, no JVD, no murmur Gastrointestinal: normal bowel sounds, soft, no organomegaly, no pulsatile mass, tenderness (Tenderness palpation the right upper abdomen. Voluntary guarding without rebound tenderness. No mass organomegaly. No skin changes.) Extremities: normal range of motion, non-tender, normal inspection, no pedal edema, no calf tenderness, normal capillary refill Neurologic/Psychiatric: alert, normal mood/affect, oriented x 3 Skin: normal color Lymphatic: no adenopathy Progress/Results/Core Measures Results/Orders Lab Results Laboratory Tests Test 01/11/22 17:55 Range/Units White Blood Count 6.9 4.3-11.0 10^3/uL Red Blood Count 4.68 3.80-5.11 10^6/uL Hemoglobin 12.7 11.5-16.0 g/dL Hematocrit 37 35-52 % Mean Corpuscular Volume 79 L 80-99 fL Mean Corpuscular Hemoglobin 27 25-34 pg Mean Corpuscular Hemoglobin Concent 34 32-36 g/dL Red Cell Distribution Width 13.4 10.0-14.5 % Platelet Count 235 130-400 10^3/uL Mean Platelet Volume 9.0 9.0-12.2 fL Immature Granulocyte % (Auto) 1 % Neutrophils (%) (Auto) 60 42-75 % Lymphocytes (%) (Auto) 27 12-44 % Monocytes (%) (Auto) 8 0-12 % Eosinophils (%) (Auto) 3 0-10 % Basophils (%) (Auto) 1 0-10 % Neutrophils # (Auto) 4.1 1.8-7.8 10^3/uL Lymphocytes # (Auto) 1.8 1.0-4.0 10^3/uL Monocytes # (Auto) 0.6 0.0-1.0 10^3/uL Eosinophils # (Auto) 0.2 0.0-0.3 10^3/uL Basophils # (Auto) 0.1 0.0-0.1 10^3/uL Immature Granulocyte # (Auto) 0.0 0.0-0.1 10^3/uL Sodium Level 139 135-145 MMOL/L Potassium Level 4.1 3.6-5.0 MMOL/L Chloride Level 101 98-107 MMOL/L Carbon Dioxide Level 24 21-32 MMOL/L Anion Gap 14 5-14 MMOL/L Blood Urea Nitrogen 12 7-18 MG/DL Creatinine 0.63 0.60-1.30 MG/DL Estimat Glomerular Filtration Rate 118 BUN/Creatinine Ratio 19 Glucose Level 432 *H 70-105 MG/DL Calcium Level 9.6 8.5-10.1 MG/DL Corrected Calcium 8.5-10.1 MG/DL Total Bilirubin 0.5 0.1-1.0 MG/DL Aspartate Amino Transf (AST/SGOT) 22 5-34 U/L Alanine Aminotransferase (ALT/SGPT) 20 0-55 U/L Alkaline Phosphatase 116 40-136 U/L Total Protein 7.7 6.4-8.2 GM/DL Albumin 4.6 H 3.2-4.5 GM/DL Lipase 24 8-78 U/L My Orders Orders - DONTA LILLY DO Cbc With Automated Diff (01/11/22 17:52) Comprehensive Metabolic Panel (01/11/22 17:52) Lipase (01/11/22 17:52) Ketorolac Injection (Toradol Injection) (01/11/22 18:00) Ketorolac Injection (Toradol Injection) (01/11/22 18:00) Medications Given in ED Current Medications Medications Dose Ordered Sig/Deven Route Start Time Stop Time Status Last Admin Dose Admin Ketorolac Tromethamine 30 mg ONCE ONCE IVP 01/11/22 18:00 01/11/22 17:59 DC 01/11/22 18:04 30 MG Vital Signs/I&O 01/11/22 17:43 Temp 36.3 Pulse 96 Resp 20 B/P (MAP) 170/124 (139) Pulse Ox 96 O2 Delivery Room Air Departure Communication (Admissions) Patient is hemodynamically stable with a nonsurgical abdominal exam. Her LFTs, lipase are normal. Symptoms still consistent with biliary colic. We will go ahead and set her up for an outpatient gallbladder ultrasound and outpatient follow-up. She is feeling somewhat better with Toradol here in the emergency department. She does not have a ride so unable to give any sedating medications for pain. She is discharged home with close follow-up and return precautions. She states understanding. Questions were sought and answered. Impression Primary Impression: RUQ pain Disposition: 01 HOME, SELF-CARE Condition: Stable Departure-Patient Inst. Referrals: [facility] (PCP) Primary Care Physician MINI STAPLES APRN (Family) Primary Care Physician Patient Instructions: Abdominal Pain, Adult ED Add. Discharge Instructions: I believe your pain is related to your gallbladder. There is no indication that this is infected at this time. I have set you up for an outpatient gallbladder ultrasound. Have this completed as scheduled and the results will go to Dr. Staples, your primary doctor. Maintain a bland diet in the meantime as fatty diet will cause your gallbladder to contract more. Return to the emergency department for any severe concerns. Follow-up with your primary physician for any nonemergent needs All discharge instructions reviewed with patient and/or family. Voiced understanding. DONTA LILLY DO Jan 11, 2022 17:58
[2022-01-11] MEDS ORDERED: KETOROLAC 60 MG/2 ML VIAL IM ONE (18:00)
[2022-01-11] MEDS ORDERED: KETOROLAC 30 MG/ML VIAL IVP ONE (18:00)
[2022-01-11 18:01] LABS: BASOPHILS # (AUTO) 0.1 10^3/uL (0.0-0.1); BASOPHILS % (AUTO) 1 % (0-10); EOSINOPHILS # (AUTO) 0.2 10^3/uL (0.0-0.3); EOSINOPHILS % (AUTO) 3 % (0-10); HEMATOCRIT 37 % (35-52); HEMOGLOBIN 12.7 g/dL (11.5-16.0); LYMPHOCYTES # (AUTO) 1.8 10^3/uL (1.0-4.0); LYMPHOCYTES % (AUTO) 27 % (12-44); MEAN CORPUSCULAR HEMOGLOBIN 27 pg (25-34); MEAN CORPUSCULAR HGB CONC 34 g/dL (32-36); MEAN CORPUSCULAR VOLUME 79 fL (80-99); MONOCYTES # (AUTO) 0.6 10^3/uL (0.0-1.0); MONOCYTES % (AUTO) 8 % (0-12); NEUTROPHILS # (AUTO) 4.1 10^3/uL (1.8-7.8); NEUTROPHILS % (AUTO) 60 % (42-75); PLATELET COUNT 235 10^3/uL (130-400); WHITE BLOOD COUNT 6.9 10^3/uL (4.3-11.0)
[2022-01-11 18:27] LABS: BUN/CREATININE RATIO 19; CARBON DIOXIDE 24 MMOL/L (21-32); CHLORIDE 101 MMOL/L (98-107); CREATININE SERUM 0.63 MG/DL (0.60-1.30); GFR ESTIMATED 118; POTASSIUM 4.1 MMOL/L (3.6-5.0); SODIUM 139 MMOL/L (135-145)
[2022-01-11 18:28] LABS: ALANINE AMINOTRANSFERASE 20 U/L (0-55); ALBUMIN 4.6 GM/DL (3.2-4.5); ALKALINE PHOSPHATASE 116 U/L (40-136); BILIRUBIN,TOTAL 0.5 MG/DL (0.1-1.0); CALCIUM 9.6 MG/DL (8.5-10.1); GLUCOSE 432 MG/DL (70-105); LIPASE 24 U/L (8-78); TOTAL PROTEIN 7.7 GM/DL (6.4-8.2)
== END 2022-01-11 18:40 | disposition home or self-care (01) ==
LOC: EDUNIT# 17:38 → ER FS 17:39
DX: R10.11 Right upper quadrant pain (principal); Z87.19 Personal history of other diseases of the digestive system; Z28.310 Unvaccinated for COVID-19
CPT/HCPCS: 36415; 80053; 83690; 85025

== ENCOUNTER → 2022-01-15 | Outpatient (CLI) | payer MEDICARE, MEDICAID ==
--- NOTE | 2022-01-15 09:46 | Diagnostic Imaging Report ---
PROCEDURE: US Gallbladder. TECHNIQUE: Multiple real-time grayscale images were obtained over the right upper quadrant in various projections. INDICATION: Right upper quadrant pain with nausea and vomiting. Its compared with abdominal pelvic CT 06/19/2021 FINDINGS: The liver is 22.6 cm mildly enlarged. Its echotexture is mildly elevated and at least mild hepatic steatosis is presumed. Body habitus in the fatty liver obscured from visualization much of the pancreas as well as the extrahepatic bile duct, there is no intrahepatic biliary ductal dilatation. Liver parenchyma appeared nonfocal. Portal vein patent and showed a normal hepatopetal directional flow. Visualized aorta nonaneurysmal. There was no ascites. The unobstructed right kidney appeared normal at 10.7 cm. IMPRESSION: Mildly enlarged fatty liver. Normal gallbladder. No intrahepatic dilatation however extrahepatic duct in the pancreas largely obscured on a technical basis. No ascites with patent normal directional hepatopetal portal venous flow. Dictated by: Dictated on workstation # [id number]
== END ==
LOC: RAD FS 08:38
PROVIDERS: ATTEND Emergency Medicine
DX: K76.0 Fatty (change of) liver, not elsewhere classified (principal); R11.2 Nausea with vomiting, unspecified
CPT/HCPCS: 76705

== ENCOUNTER 2022-03-18 14:27 | Emergency (ER) | payer OTHER, MEDICAID ==
[~2022-03-18] VITALS: Ht 160 cm; Wt 102.0 kg
[2022-03-18 14:41] VITALS: BP 156/96
[2022-03-18 15:05] LABS: BILIRUBIN,URINE NEGATIVE (NEGATIVE); CLARITY,URINE SL CLOUDY; COLOR,URINE YELLOW; GLUCOSE, URINE (UA) 3+ (NEGATIVE); KETONES,URINE 1+ (NEGATIVE); LEUKOCYTE ESTERASE ,URINE NEGATIVE (NEGATIVE); NITRITE,URINE NEGATIVE (NEGATIVE); PH,URINE 5.5 (5-9); PROTEIN,URINE NEGATIVE (NEGATIVE)
[2022-03-18 15:17] LABS: BACTERIA,URINE TRACE /HPF; YEAST,URINE MODERATE /HPF
--- NOTE | 2022-03-18 15:19 | ED Abdominal Pain ---
General Chief Complaint: Abdominal/GI Problems Stated Complaint: SUPRAPUBIC PAIN Nursing Triage Note: Patient has presented to the ER with cc of mid lower ad pain for the last 3 days. Patient reports the pain is just over her bladder area. She has taken ibuprofen for the pain. Source of Information: Patient Exam Limitations: No Limitations History of Present Illness Date Seen by Provider: Mar 18, 2022 Time Seen by Provider: 14:34 Initial Comments 36-year-old female with past medical history of diabetes, hypertension, hyperlipidemia coming in due to lower abdominal pain. Started over the past 3 days, worsening today. Denies any dysuria, hematuria, nausea, vomiting, diarrhea, fever, chest pain, shortness of breath, vaginal discharge associated with it. Denies having pain like this before. Has had prior kidney stones, but states that did not feel like this. Is otherwise denying any other acute complaints. Tried ibuprofen about 6 hours ago which did help somewhat. Allergies and Home Medications Allergies Uncoded Allergies: CONTROL (Allergy, Mild, HIGH BLOOD PRESSURE, 10/05/09) Patient Home Medication List Home Medication List Reviewed: Yes Amitriptyline HCl (Amitriptyline HCl) 25 Mg Tablet, 50 MG PO DAILY, (Reported) Entered as Reported by: DOMINIC HERNANDEZ on 07/23/211213 Ascorbic Acid (Vitamin C) 1,000 Mg Tablet, 1,000 MG PO DAILY, (Reported) Entered as Reported by: DOMINIC HERNANDEZ on 07/23/211213 Aspirin (Aspirin) 81 Mg Tab.chew, 81 MG PO DAILY, (Reported) Entered as Reported by: DOMINIC HERNANDEZ on 07/23/211213 Dapagliflozin Propanediol (Farxiga) 10 Mg Tablet, 10 MG PO DAILY, (Reported) Entered as Reported by: DOMINIC HERNANDEZ on 07/23/211213 Duloxetine HCl (Duloxetine HCl) 60 Mg Capsule.dr, 60 MG PO DAILY, (Reported) Entered as Reported by: DOMINIC HERNANDEZ on 07/23/211213 Glucosa Schmidt 2Kcl/Chondroitin Schmidt (Glucosamine & Chondroitin Cap) 1 Each Capsule, 2 EACH PO DAILY, (Reported) Entered as Reported by: DOMINIC HERNANDEZ on 07/23/211213 Ibuprofen (Ibuprofen) 400 Mg Tablet, 400 MG PO TID PRN for PAIN, (Reported) Entered as Reported by: DOMINIC HERNANDEZ on 07/23/21 121 Lisinopril (Lisinopril) 20 Mg Tablet, 20 MG PO DAILY, (Reported) Entered as Reported by: DOMINIC HERNANDEZ on 07/23/21 121 Metformin HCl (Metformin HCl) 500 Mg Tablet, 500 MG PO BID, (Reported) Entered as Reported by: DOMINIC HERNANDEZ on 07/23/21 1214 Mv-Mn/Iron/FA/Herbal Cmplx#190 (Vitamin D3 Complete Caplet) 1 Each Tablet, 1 EACH PO DAILY, (Reported) Entered as Reported by: DOMINIC HERNANDEZ on 07/23/21 121 Omeprazole (Omeprazole) 20 Mg Tablet.dr, 20 MG PO BID, (Reported) Entered as Reported by: DOMINIC HERNANDEZ on 07/23/21 121 Ondansetron (Ondansetron Odt) 4 Mg Tab.rapdis, 4 MG PO Q6H PRN for NAUSEA/VOMITING-1ST LINE Prescribed by: ANAI CANALES on 08/20/21 0849 Sucralfate (Carafate) 1 Gm Tablet, 1 GM PO QID Prescribed by: BUSTER KEVIN on 06/23/21 0541 Tolterodine Tartrate (Tolterodine Tartrate) 2 Mg Tablet, 2 MG PO DAILY, (Reported) Entered as Reported by: DOMINIC HERNANDEZ on 07/23/21 121 Topiramate (Topiramate) 25 Mg Tablet, 25 MG PO DAILY, (Reported) Entered as Reported by: DOMINIC HERNANDEZ on 07/23/21 1214 Review of Systems Review of Systems Constitutional: No fever EENTM: No Symptoms Reported Respiratory: No Symptoms Reported Cardiovascular: No Symptoms Reported Gastrointestinal: See HPI Genitourinary: No Symptoms Reported Musculoskeletal: no symptoms reported Skin: no symptoms reported Psychiatric/Neurological: No Symptoms Reported Endocrine: No Symptoms Reported Hematologic/Lymphatic: No Symptoms Reported All Other Systems Reviewed Negative Unless Noted: Yes Past Tsqarny-Meilyd-Oniaxv Hx Patient Social History Tobacco Use?: No Smoking Status: Former Smoker Use of E-Cig and/or Vaping dev: No Substance use?: No Alcohol Use?: No Pt feels they are or have been: Unable to obtain Immunizations Up To Date Tetanus Booster (TDap): Unknown First/Initial COVID19 Vaccinat: NO Second COVID19 Vaccination Papa: NO Third COVID19 Vaccination Date: NO Seasonal Allergies Seasonal Allergies: No Past Medical History Surgery/Hospitalization HX: back pain, PTSD, DM, HTN, fibromyalgia Surgeries: Yes (EGD/COLONOSCOPY JULY 2021) Bladder Surgery Respiratory: No Currently Using CPAP: No Currently Using BIPAP: No Cardiac: Yes Hypertension Neurological: No Reproductive Disorders: No Female Reproductive Disorders: Menstrual Problems Sexually Transmitted Disease: No HIV/AIDS: No Genitourinary: Yes (BLADDER SURGERY A CHILD, OVERACTIVE BLADDER) Gastrointestinal: Yes Gastroesophageal Reflux Musculoskeletal: Yes Fibromyalgia, Back Injury, Scoliosis, Chronic Back Pain Endocrine: Yes Diabetes, Non-Insulin dep HEENT: No Double Vision Cancer: No Psychosocial: Yes Anxiety, Depression Integumentary: No Blood Disorders: No Family Medical History No Pertinent Family Hx, Renal Disease Physical Exam Vital Signs Vital Signs - First Documented 03/18/22 14:41 Temp 35.6 Pulse 118 Resp 16 B/P (MAP) 156/96 (116) Pulse Ox 100 O2 Delivery Room Air Capillary Refill : Height/Weight/BMI Height: '" Weight: 220lbs. oz. 99.466399sv; 39.00 BMI Method:Stated General Appearance: WD/WN, no apparent distress HEENT: PERRL/EOMI, normal ENT inspection, pharynx normal Neck: non-tender, full range of motion, supple, normal inspection Respiratory: chest non-tender, lungs clear, normal breath sounds, no res piratory distress, no accessory muscle use Cardiovascular: regular rate, rhythm, no edema, no murmur Gastrointestinal: normal bowel sounds, soft; No distended, No guarding, No rebound; tenderness Extremities: normal range of motion, non-tender, normal inspection, no pedal edema, no calf tenderness, normal capillary refill Back: normal inspection, no CVA tenderness Neurologic/Psychiatric: no motor/sensory deficits, alert, normal mood/affect Skin: normal color, warm/dry Lymphatic: no adenopathy Progress/Results/Core Measures Results/Orders Lab Results Laboratory Tests Test 03/18/22 14:30 03/18/22 15:20 Range/Units Urine Color YELLOW Urine Clarity SL CLOUDY Urine pH 5.5 5-9 Urine Specific [place] <=1.005 1.016-1.022 Urine Protein NEGATIVE NEGATIVE Urine Glucose (UA) 3+ H NEGATIVE Urine Ketones 1+ H NEGATIVE Urine Nitrite NEGATIVE NEGATIVE Urine Bilirubin NEGATIVE NEGATIVE Urine Urobilinogen 0.2 < = 1.0 MG/DL Urine Leukocyte Esterase NEGATIVE NEGATIVE Urine RBC (Auto) 1+ H NEGATIVE Urine RBC 2-5 H /HPF Urine WBC 5-10 H /HPF Urine Squamous Epithelial Cells 5-10 /HPF Urine Crystals NONE /LPF Urine Bacteria TRACE /HPF Urine Casts NONE /LPF Urine Mucus NEGATIVE /LPF Urine Yeast MODERATE H /HPF Urine Culture Indicated NO White Blood Count 6.9 4.3-11.0 10^3/uL Red Blood Count 3.59 L 3.80-5.11 10^6/uL Hemoglobin 8.7 L 11.5-16.0 g/dL Hematocrit 27 L 35-52 % Mean Corpuscular Volume 76 L 80-99 fL Mean Corpuscular Hemoglobin 24 L 25-34 pg Mean Corpuscular Hemoglobin Concent 32 32-36 g/dL Red Cell Distribution Width 14.3 10.0-14.5 % Platelet Count 185 130-400 10^3/uL Mean Platelet Volume 9.5 9.0-12.2 fL Immature Granulocyte % (Auto) 1 % Neutrophils (%) (Auto) 71 42-75 % Lymphocytes (%) (Auto) 21 12-44 % Monocytes (%) (Auto) 6 0-12 % Eosinophils (%) (Auto) 2 0-10 % Basophils (%) (Auto) 0 0-10 % Neutrophils # (Auto) 4.9 1.8-7.8 10^3/uL Lymphocytes # (Auto) 1.4 1.0-4.0 10^3/uL Monocytes # (Auto) 0.4 0.0-1.0 10^3/uL Eosinophils # (Auto) 0.1 0.0-0.3 10^3/uL Basophils # (Auto) 0.0 0.0-0.1 10^3/uL Immature Granulocyte # (Auto) 0.0 0.0-0.1 10^3/uL Sodium Level 137 135-145 MMOL/L Potassium Level 3.6 3.6-5.0 MMOL/L Chloride Level 102 98-107 MMOL/L Carbon Dioxide Level 23 21-32 MMOL/L Anion Gap 12 5-14 MMOL/L Blood Urea Nitrogen 12 7-18 MG/DL Creatinine 0.70 0.60-1.30 MG/DL Estimat Glomerular Filtration Rate 115 BUN/Creatinine Ratio 17 Glucose Level 450 *H 70-105 MG/DL Calcium Level 8.7 8.5-10.1 MG/DL Corrected Calcium 9.1 8.5-10.1 MG/DL Total Bilirubin 0.3 0.1-1.0 MG/DL Aspartate Amino Transf (AST/SGOT) 11 5-34 U/L Alanine Aminotransferase (ALT/SGPT) 10 0-55 U/L Alkaline Phosphatase 89 40-136 U/L Total Protein 6.1 L 6.4-8.2 GM/DL Albumin 3.5 3.2-4.5 GM/DL Lipase 24 8-78 U/L My Orders Orders - ANAI CANALES MD Urine Bedside (03/18/22 15:00) Ua Culture If Indicated (03/18/22 15:00) Comprehensive Metabolic Panel (03/18/22 15:17) Lipase (03/18/22 15:17) Ed Iv/Invasive Line Start (03/18/22 15:17) Cbc With Automated Diff (03/18/22 15:17) Ct Abdomen/Pelvis W (03/18/22 15:17) Ketorolac Injection (Toradol Injection) (03/18/22 15:30) Iohexol Injection (Omnipaque 350 Mg/Ml 1 (03/18/22 15:30) Received Contrast (Hold Metformin- Contr (03/18/22 15:30) Ns (Ivpb) (Sodium Chloride 0.9% Ivpb Bag (03/18/22 15:30) Medications Given in ED Current Medications Medications Dose Ordered Sig/Deven Route Start Time Stop Time Status Last Admin Dose Admin Iohexol 100 ml ONCE ONCE IV 03/18/22 15:30 03/18/22 15:31 DC 03/18/22 15:40 80 ML Ketorolac Tromethamine 15 mg ONCE ONCE IVP 03/18/22 15:30 03/18/22 15:31 DC 03/18/22 15:30 15 MG Sodium Chloride 100 ml ONCE ONCE IV 03/18/22 15:30 03/18/22 15:31 DC 03/18/22 15:40 100 ML Vital Signs/I&O 03/18/22 14:41 Temp 35.6 Pulse 118 Resp 16 B/P (MAP) 156/96 (116) Pulse Ox 100 O2 Delivery Room Air Blood Pressure Mean: 116 Progress Progress Note : Progress Note 36-year-old female with above history coming in due to lower abdominal pain. ABCs were intact and vitals were stable on presentation. She has lower abdominal tenderness but no signs of peritonitis. An IV was placed and basic labs were obtained and were significant for no leukocytosis, urinalysis with no obvious infection, but there is blood in it. CT abdomen pelvis concerning for large ovarian mass likely malignancy. The patient states that she has known about gynecologic malignancy for several months, and was referred to [facility], but missed her appointment. 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 I will give her information on how to follow-up with gynecology here in case she is unable to follow-up in [place], so they can at least steer her in the right direction. I discussed with her that if she is unable to get an appointment within the next couple of days, she needs to call her PCP to help coordinate this. Diagnostic Imaging Diagonstic Imaging: CT (abd/pelvis) Comments NAME: [facility] REC#: [id number] PT STATUS: REG ER : 1985 PHYSICIAN: ANAI CANALES MD ADMIT DATE: 03/18/22/LUCERO FS Draft Date of Exam:03/18/22 CT ABDOMEN/PELVIS W EXAMINATION: CT abdomen and pelvis with intravenous contrast. TECHNIQUE: Multiple contiguous axial images were obtained through the abdomen and pelvis after the uneventful administration of intravenous contrast. All CT scans use one or more of the following dose optimizing techniques: automated exposure control, MA and/or KvP adjustment based on patient size and exam type or iterative reconstruction. HISTORY: Severe COMPARISON: 06/19/2021 FINDINGS: Limited views of the lower thorax are unremarkable. There are no suspicious liver lesions. There is no biliary ductal dilation. Gallbladder is normal. Pancreas is normal. There is a stable small low attenuating lesion in the spleen. 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 The kidneys are normal. There is no hydronephrosis. Urinary bladder is normal. There is a large right adnexal mass measuring 8.7 x 6.3 cm. There is a complex cystic and solid left adnexal mass measuring 12 x 14 cm. Endometrium is thickened. Small amount of free fluid is present. Bowel is normal in caliber without obstruction or inflammation. No free fluid or air. No abdominal or pelvic lymphadenopathy. Aorta is normal in caliber without aneurysm. There are no suspicious osseus lesions. IMPRESSION: 1. Large solid-appearing right adnexal mass with a large cystic and solid left adnexal mass associated with endometrial thickening and a small amount of ascites. Findings highly concerning for an ovarian malignancy. Gynecologic evaluation is recommended. Called to Dr. Anai Canales at 4:15 p.m. by katy. Dictated on workstation # [id number] Dict: 03/18/22 1603 Trans: 03/18/22 1614 CVB [id number] Interpreted by: GREALDO LUGO MD Electronically signed by: Departure Impression Primary Impression: Ovarian mass, right Additional Impressions: Ovarian mass, left Endometrial adenocarcinoma Disposition: HOME, SELF-CARE Condition: Stable Departure-Patient Inst. Decision time for Depature: 16:26 Referrals: MINI STAPLES APRN (PCP) Primary Care Physician [facility] (Family) Primary Care Physician Patient Instructions: Uterine Cancer Add. Discharge Instructions: From your uterus biopsy done roughly 5 months ago, they mentioned you have uterine adenocarcinoma which is a cancer. Today you have a large ovarian mass on the right side and left side which is concerning for cancer as well. Please follow-up with an [employer] cancer specialist as soon as possible. If you are unable to get an appointment with 1, you can follow-up with Dr. Smith in [place], and he can at least help refer you to the proper location. If you cannot get an appointment with anybody, call your primary doctor to help schedule an appointment with someone. Scripts Ondansetron (Ondansetron Odt) 4 Mg Tab.rapdis 4 MG SL Q6H PRN for NAUSEA/VOMITING for 5 Days, #20 TAB Prov: ANAI CANALES MD 03/18/22 Hydrocodone Bit/Acetaminophen (HYDROcodone/APAP 5 MG/325 MG TAB) 1 Tab Tab 1 TAB PO Q6H PRN for PAIN-SEVERE (8-10) for 4 Days, #16 TAB 0 Refills Prov: ANAI CANALES MD 03/18/22 Work/School Note: Work Release Form Date Seen in the Emergency Department: Mar 18, 2022 Return to Work: Mar 19, 2022 Restrictions: No Restrictions ANAI CANALES MD Mar 18, 2022 15:19
[2022-03-18] MEDS ORDERED: IOHEXOL 350 MG/ML 100 ML (OMNIPAQUE 350) VIAL IV ONE (15:30)
[2022-03-18] MEDS ORDERED: NS 100 ML (IVPB) BAG IV ONE (15:30)
[2022-03-18] MEDS ORDERED: HOLD METFORMIN - RECEIVED CONTRAST 20 ML VIAL IV SCH (15:30)
[2022-03-18] MEDS ORDERED: KETOROLAC 15 MG/ML VIAL IVP ONE (15:30)
[2022-03-18 15:31] LABS: BASOPHILS % (AUTO) 0 % (0-10); EOSINOPHILS # (AUTO) 0.1 10^3/uL (0.0-0.3); EOSINOPHILS % (AUTO) 2 % (0-10); HEMATOCRIT 27 % (35-52); HEMOGLOBIN 8.7 g/dL (11.5-16.0); LYMPHOCYTES # (AUTO) 1.4 10^3/uL (1.0-4.0); LYMPHOCYTES % (AUTO) 21 % (12-44); MEAN CORPUSCULAR HEMOGLOBIN 24 pg (25-34); MEAN CORPUSCULAR HGB CONC 32 g/dL (32-36); MEAN CORPUSCULAR VOLUME 76 fL (80-99); MEAN PLATELET VOLUME 9.5 fL (9.0-12.2); MONOCYTES # (AUTO) 0.4 10^3/uL (0.0-1.0); MONOCYTES % (AUTO) 6 % (0-12); NEUTROPHILS # (AUTO) 4.9 10^3/uL (1.8-7.8); NEUTROPHILS % (AUTO) 71 % (42-75); PLATELET COUNT 185 10^3/uL (130-400); WHITE BLOOD COUNT 6.9 10^3/uL (4.3-11.0)
[2022-03-18 16:03] LABS: BILIRUBIN,TOTAL 0.3 MG/DL (0.1-1.0); CALCIUM 8.7 MG/DL (8.5-10.1); CREATININE SERUM 0.7 MG/DL (0.60-1.30); POTASSIUM 3.6 MMOL/L (3.6-5.0); TOTAL PROTEIN 6.1 GM/DL (6.4-8.2)
[2022-03-18 16:04] LABS: ALBUMIN 3.5 GM/DL (3.2-4.5)
--- NOTE | 2022-03-18 16:14 | Diagnostic Imaging Report ---
EXAMINATION: CT abdomen and pelvis with intravenous contrast. TECHNIQUE: Multiple contiguous axial images were obtained through the abdomen and pelvis after the uneventful administration of intravenous contrast. All CT scans use one or more of the following dose optimizing techniques: automated exposure control, MA and/or KvP adjustment based on patient size and exam type or iterative reconstruction. HISTORY: Severe COMPARISON: 06/19/2021 FINDINGS: Limited views of the lower thorax are unremarkable. There are no suspicious liver lesions. There is no biliary ductal dilation. Gallbladder is normal. Pancreas is normal. There is a stable small low attenuating lesion in the spleen. 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 The kidneys are normal. There is no hydronephrosis. Urinary bladder is normal. There is a large right adnexal mass measuring 8.7 x 6.3 cm. There is a complex cystic and solid left adnexal mass measuring 12 x 14 cm. Endometrium is thickened. Small amount of free fluid is present. Bowel is normal in caliber without obstruction or inflammation. No free fluid or air. No abdominal or pelvic lymphadenopathy. Aorta is normal in caliber without aneurysm. There are no suspicious osseus lesions. IMPRESSION: 1. Large solid-appearing right adnexal mass with a large cystic and solid left adnexal mass associated with endometrial thickening and a small amount of ascites. Findings highly concerning for an ovarian malignancy. Gynecologic evaluation is recommended. Called to Dr. Jeramie Siegel at 4:15 p.m. by katy. Dictated by: Dictated on workstation # [id number]
[2022-03-18] MEDS ORDERED: ACHD5005 PO (16:28)
[2022-03-18] MEDS ORDERED: ONDA4TAB11 SL (16:28)
== END 2022-03-18 16:45 | disposition home or self-care (01) ==
LOC: EDUNIT# 14:27 → ER FS 14:28
DX: N83.201 Unspecified ovarian cyst, right side (principal); N83.202 Unspecified ovarian cyst, left side; C54.1 Malignant neoplasm of endometrium; Z87.891 Personal history of nicotine dependence; Z28.310 Unvaccinated for COVID-19
CPT/HCPCS: 36415; 74177; 80053; 81000; 83690; 84703; 85025; Q9967

== ENCOUNTER 2022-09-28 15:49 | Emergency (ER) | payer OTHER, MEDICAID ==
[~2022-09-28] VITALS: Ht 160 cm; Wt 86.1 kg
[~2022-09-28 15:49] MED LIST changes: +ACHD5005 PO
[2022-09-28 16:00] VITALS: BP 123/84
--- NOTE | 2022-09-28 16:21 | ED EENT ---
History of Present Illness General Chief Complaint: Eye Problems Stated Complaint: EYE PAIN Nursing Triage Note: PT PRESENTS TO ED WITH C/O SWELLING, REDNESS, AND PAIN ON RIGHT EYE THAT BEGAN YESTERDAY. PT STATED SOMETHING SIMILAR HAPPENED LAST MONTH TO LEFT EYE AND THEY SAID IT WAS A CLOGGED TEAR DUCT. PT REPORTS INCREASED BLURRED VISION IN RIGHT EYE. Source: patient Exam Limitations: no limitations History of Present Illness Date Seen by Provider: September 28, 2022 Time Seen by Provider: 16:07 Initial Comments 37-year-old female presents to the ER with complaints of right eye pain and swelling starting Friday. She states that 2 AM this morning she noticed pus coming from her upper eyelid. Thinks is coming from her tear duct. She denies any fever. She reports eye pain and blurry vision. She is currently on chemotherapy for endometrial cancer. Other past medical history includes diabetes, fibromyalgia, hypertension, depression, anxiety, PTSD. Allergies and Home Medications Allergies Uncoded Allergies: CONTROL (Allergy, Mild, HIGH BLOOD PRESSURE, 10/05/09) Patient Home Medication List Home Medication List Reviewed: Yes Amitriptyline HCl (Amitriptyline HCl) 25 Mg Tablet, 50 MG PO DAILY, (Reported) Entered as Reported by: DOMINIC HERNANDEZ on 07/23/21 1214 Ascorbic Acid (Vitamin C) 1,000 Mg Tablet, 1,000 MG PO DAILY, (Reported) Entered as Reported by: DOMINIC HERNANDEZ on 07/23/21 121 Aspirin (Aspirin) 81 Mg Tab.chew, 81 MG PO DAILY, (Reported) Entered as Reported by: DOMINIC HERNANDEZ on 07/23/21 1214 Dapagliflozin Propanediol (Farxiga) 10 Mg Tablet, 10 MG PO DAILY, (Reported) Entered as Reported by: DOMINIC HERNANDEZ on 07/23/21 1214 Doxycycline Hyclate (Doxycycline Hyclate) 100 Mg Capsule, 100 MG PO BID Prescribed by: Itzel Luu on 09/28/22 165 Duloxetine HCl (Duloxetine HCl) 60 Mg Capsule.dr, 60 MG PO DAILY, (Reported) Entered as Reported by: DOMINIC HERNANDEZ on 07/23/21 1214 Gentamicin Sulfate (Gentamicin Sulfate) 0.3 % Drops, 1 DROP OP Q4H Prescribed by: Itzel Luu on 09/28/22 1708 Glucosa Schmidt 2Kcl/Chondroitin Schmidt (Glucosamine & Chondroitin Cap) 1 Each Capsule, 2 EACH PO DAILY, (Reported) Entered as Reported by: DOMINIC HERNANDEZ on 07/23/21 1214 Hydrocodone Bit/Acetaminophen (HYDROcodone/APAP 5 MG/325 MG TAB) 1 Tab Tab, 1 TAB PO Q6H PRN for PAIN-SEVERE (8-10) Prescribed by: ANAI CANALES on 03/18/22 1629 Ibuprofen (Ibuprofen) 400 Mg Tablet, 400 MG PO TID PRN for PAIN, (Reported) Entered as Reported by: DOMINIC HERNANDEZ on 07/23/21 1214 Lisinopril (Lisinopril) 20 Mg Tablet, 20 MG PO DAILY, (Reported) Entered as Reported by: DOMINIC HERNANDEZ on 07/23/21 1214 Metformin HCl (Metformin HCl) 500 Mg Tablet, 500 MG PO BID, (Reported) Entered as Reported by: DOMINIC HERNANDEZ on 07/23/21 1214 Mv-Mn/Iron/FA/Herbal Cmplx#190 (Vitamin D3 Complete Caplet) 1 Each Tablet, 1 EACH PO DAILY, (Reported) Entered as Reported by: DOMINIC HERNANDEZ on 07/23/21 1214 Omeprazole (Omeprazole) 20 Mg Tablet.dr, 20 MG PO BID, (Reported) Entered as Reported by: DOMINIC HERNANDEZ on 07/23/21 1214 Ondansetron (Ondansetron Odt) 4 Mg Tab.rapdis, 4 MG PO Q6H PRN for NAUSEA/VOMITING-1ST LINE Prescribed by: ANAI CANALES on 08/20/21 0849 Ondansetron (Ondansetron Odt) 4 Mg Tab.rapdis, 4 MG SL Q6H PRN for NAUSEA/VOMITING Prescribed by: ANAI CANALES on 03/18/22 1628 Sucralfate (Carafate) 1 Gm Tablet, 1 GM PO QID Prescribed by: BUSTER KEVIN on 06/23/21 0541 Tolterodine Tartrate (Tolterodine Tartrate) 2 Mg Tablet, 2 MG PO DAILY, (Reported) Entered as Reported by: DOMINIC HERNANDEZ on 07/23/21 1214 Topiramate (Topiramate) 25 Mg Tablet, 25 MG PO DAILY, (Reported) Entered as Reported by: DOMINIC HERNANDEZ on 07/23/21 1214 Review of Systems Review of Systems Constitutional: see HPI Past Kixnczv-Mazzod-Ozlrzs Hx Patient Social History Tobacco Use?: No Substance use?: No Alcohol Use?: No Pt feels they are or have been: No Immunizations Up To Date Tetanus Booster (TDap): Unknown Influenza Vaccine Up-to-Date: No; Not Current First/Initial COVID19 Vaccinat: NO Second COVID19 Vaccination Papa: NO Third COVID19 Vaccination Date: NO Seasonal Allergies Seasonal Allergies: No Past Medical History Surgery/Hospitalization HX: back pain, PTSD, DM, HTN, fibromyalgia Surgeries: Yes (EGD/COLONOSCOPY JULY 2021) Bladder Surgery Respiratory: No Currently Using CPAP: No Currently Using BIPAP: No Cardiac: Yes Hypertension Neurological: No Reproductive Disorders: No Female Reproductive Disorders: Menstrual Problems Sexually Transmitted Disease: No HIV/AIDS: No Genitourinary: Yes (BLADDER SURGERY A CHILD, OVERACTIVE BLADDER) Gastrointestinal: Yes Gastroesophageal Reflux Musculoskeletal: Yes Fibromyalgia, Back Injury, Scoliosis, Chronic Back Pain Endocrine: Yes Diabetes, Non-Insulin dep HEENT: No Double Vision Cancer: No Psychosocial: Yes Anxiety, Depression Integumentary: No Blood Disorders: No Family Medical History No Pertinent Family Hx, Renal Disease Physical Exam Vital Signs Vital Signs - First Documented 09/28/22 16:00 Temp 37.1 Pulse 117 Resp 20 B/P (MAP) 123/84 (97) Pulse Ox 98 O2 Delivery Room Air Height, Weight, BMI Height: '" Weight: 220lbs. oz. 99.968026bz; 33.00 BMI Method:Stated General Appearance: WD/WN, no apparent distress Eyes: right eye lid inflammation, right eye other (Pustule on medial upper eyelid, above tear duct) Neck: supple, normal inspection Cardiovascular: regular rate, rhythm Respiratory: lungs clear, normal breath sounds, no respiratory distress, no accessory muscle use Neurologic/Psychiatric: alert, normal mood/affect Skin: normal color, warm/dry Progress/Results/Core Measures Results/Orders My Orders Medications Given in ED Vital Signs/I&O Blood Pressure Mean: 97 Progress Progress Note : Progress Note Patient seen and evaluated, resting comfortably in recliner, no acute distress. Visual acuities are 20/40 bilaterally, 20/40 in the left, and 20/70 in the right. Patient wears glasses, did wear glasses during exam. Dr. Schumacher, ER physician, also evaluated patient. She recommends discharge with ophthalmic antibiotic as well as oral antibiotic due to patient being on chemotherapy and having diabetes. Discharge plan discussed with patient. Patient agreeable to discharge plan. Discharge instructions and return precautions provided. Departure Impression Primary Impression: Nasolacrimal duct obstruction Disposition: HOME, SELF-CARE Condition: Stable Departure-Patient Inst. Decision time for Depature: 16:51 Referrals: MINI STAPLES APRN (PCP) Primary Care Physician [facility] (Family) Primary Care Physician Patient Instructions: Tear Duct Infection (DC) Add. Discharge Instructions: Complete full course of antibiotic as directed even if symptoms improve. Use the ointment twice a day for 10 days. Continue doing warm compresses. Follow-up with primary care provider. Return for worsening pain, increased swelling, fever, worsening vision, or any other new, concerning, or worsening symptoms. All discharge instructions reviewed with patient and/or family. Voiced understanding. Scripts Gentamicin Sulfate (Gentamicin Sulfate) 0.3 % Drops 1 DROP OP Q4H for 10 Days, #1 EA 0 Refills Prov: ITZEL LUU APRN 09/28/22 Doxycycline Hyclate (Doxycycline Hyclate) 100 Mg Capsule 100 MG PO BID for 10 Days, #20 CAP 0 Refills Prov: ITZEL LUU APRN 09/28/22 ITZEL LUU APRN September 28, 2022 16:21
[2022-09-28] MEDS ORDERED: RX-GENTAMICIN 0.3% OP OINT 3.5 GM TUBE OP STA (16:52)
[2022-09-28] MEDS ORDERED: DOXY100C5 PO (16:52)
[2022-09-28] MEDS ORDERED: DOXYCYCLINE 100 MG (VIBRAMYCIN) TABLET PO ONE (17:00)
[2022-09-28] MEDS ORDERED: GENT5DRO6 OP (17:08)
== END 2022-09-28 17:09 | disposition home or self-care (01) ==
LOC: EDUNIT# 15:49 → ER 15:52
DX: H04.551 Acquired stenosis of right nasolacrimal duct (principal); C54.1 Malignant neoplasm of endometrium; Z28.310 Unvaccinated for COVID-19
CPT/HCPCS: 99283